=== PATIENT | male | born 1940 | race Caucasian/White ===

== ENCOUNTER 2025-04-30 14:00 | Outpatient (REF) | payer MEDICARE, SELFPAY ==
--- NOTE | ~2025-04-30 | FL_ITS ---
EXAMINATION: Modified Barium Swallow CLINICAL INFORMATION: Dysphagia COMPARISON: None TECHNIQUE: Modified barium swallow was performed under lateral fluoroscopy with patient in standing position. Barium mixed with solids and liquids of different consistencies was administered by the speech pathologist. Examination was recorded in the fluoroscopy suite. FINDINGS: Patient was given multiple consistencies. There was no laryngeal penetration or subglottic aspiration present. FLUOROSCOPY TIME: 1 minute 13 seconds Number of Spot Images: N/A DOSE AREA PRODUCT: 805.1 uGy-m2 (microgray-meter squared) FL/FL Modified Barium Swallow IMPRESSION: No laryngeal penetration or subglottic aspiration. Please refer to the full speech therapy report to follow for further detail. Electronically signed by: Alejo Galicia MD 04/30/2025 03:12 PM EDT
--- OUTSIDE RECORDS SUMMARY | 2025-04-30 15:15 | XMS_ITS | Encounter Summary ---
Author Organization [facility] Address [address] [place] [address] Phone Care Team Providers Care Paper And Prints Restorer Name Role Phone Scooter Gross MD Unavailable [phone] Dari Javier MD Primary Care Provider [email or web address] Bonita Sweeney MD Primary Care Provider [phone] Gema Mari RN Unavailable [phone] Bonita Sweeney A Primary Care Provider [phone] Gema Mari RN Unavailable [phone] Jennie Brown Unavailable [email or web address] Encounter Details Date Type Department Care Team (Late st Contact Info) Description 12/16/2021 Procedure Pass [facility], Ct Scan - [address] [address] Social History Tobacco Use Types Packs/Day Years Used Date Smoking Tobacco: Former Cigarettes 0.5 20 1 965 - 1985 Smokeless Tobacco: Never Alcohol Use Standard Drinks/Week Comments No 0 (1 standard drink = 0.6 oz pur e alcohol) Child or Family Care Answer Date Record ed Do you have problems with on e of the following making it difficult for you to work, study, or receive health care? No 12/19/2020 Education Answer Date Recorded Are you interested in help w ith more adult education (for example, completing high school, GED, job training, learning the Hong Konger language, technical skills, or developing parenting skills)? No 12/19/2020 Food Answer Date Recorded Within the past 6 months we worried whether our food would run out before we got money to buy more. Never True 12/19/2020 Within the past 6 months the food we bought just didn't last and we didn't have enough money to get more. Never True Paying for Meds Answer Date Recorded Do you have trouble paying for medicines? No 12/19/2020 Paying Utility Bills Answer Date Record ed Do you have trouble paying your heating or elect ricity bill? No 12/19/2020 Transportation Answer Date Recorded Has the lack of transportati on kept you from medical appointments or from getting medications? No 12/19/2020 Sex and Gender Information Value Date Recorded Sex Assigned at Male 10/23/2019 11:56 AM EST Legal Sex Male 10:11 PM EDT Gender Identity Male 10/23/2019 11:56 AM EST Sexual Orientation Straight 10/23/2019 11 :56 AM EST documented as of this encounter Plan of Treatment Upcoming Encounters Date Type Department Care Team (Late st Contact Info) Description 05/14/2025 1:40 PM EDT Office Visit [facility] [address] [place] [address] 3rd [facility], [address] [address] Wilton Deluca MD [address] [place] [address] 05/23/2025 4:00 PM EDT Office Visit [facility] Services [address] [place] [address] Naga Luis MD, MS [address] [address] Marlee Meraz, [facility]-AUTOMATION MECHANIC 8 [place] [address] 05/29/2025 1:30 PM EDT Office Visit [facility] [address] [place] [address] Naga Luis MD, MS [address] [address] 05/30/2025 4:00 PM EDT Office Visit [address] [place] [address] Naga Luis MD, MS [address] [address] [email or web address] Marlee Meraz CCC-AUTOMATION MECHANIC 8 [place] [address] 06/06/2025 4:00 PM EDT Office Visit [address] [place] [address] Naga Luis MD, MS [address] [place] [address] Marlee Meraz CCC-AUTOMATION MECHANIC 8 [place] [address] 06/13/2025 4:00 PM EDT Office Visit [facility] [address] [place] [address] Naga Luis MD, MS [address] [place] [address] Marlee Meraz CCC-AUTOMATION MECHANIC 8 [place] [address] 06/14/2025 10:00 AM EDT Office Visit [facility] Medical [address] [place] [address] Bonita Sweeney MD [address] [place] [address] 06/20/2025 2:00 PM EDT Office Visit [address] [address] Naga Luis MD, MS [address] [address] Marlee Meraz CCC-AUTOMATION MECHANIC [address] [place] [address] 06/27/2025 2:00 PM EDT Office Visit [address] [address] Naga Luis MD, MS [address] [address] Marlee Meraz CCC-AUTOMATION MECHANIC [address] [place] [address] 07/04/2025 2:00 PM EST Office Visit [address] [address] Naga Luis MD, MS [address] [address] Marlee Meraz CCC-AUTOMATION MECHANIC [address] [place] [address] 07/11/2025 2:00 PM EST Office Visit [address] [address] Naga Luis MD, MS [address] [address] Marlee Meraz CCC-AUTOMATION MECHANIC 8 [place] [address] 07/18/2025 2:00 PM EST Office Visit [address] [address] Naga Luis MD, MS [address] [address] Marlee Meraz CCC-AUTOMATION MECHANIC [address] [place] [address] 07/26/2025 1:00 PM EST Office Visit [address] [address] Naga Luis MD, MS [address] [address] Marlee Meraz CCC-AUTOMATION MECHANIC [address] [place] [address] 08/01/2025 2:00 PM EST Office Visit [address] [address] Naga Luis MD, MS [address] [address] Marlee Meraz CCC-AUTOMATION MECHANIC [address] [place] [address] 08/08/2025 2:00 PM EST Office Visit [address] [address] Naga Luis MD, MS [address] [address] Marlee Meraz, CCC-AUTOMATION MECHANIC 8 [place] [address] 08/15/2025 2:00 PM EST Office Visit [facility] Services 8 [place] [address] Naga Luis MD, MS [address] [address] Marlee Meraz CCC-AUTOMATION MECHANIC 8 [place] [address] documented as of this encounter Visit Diagnoses Not on filedocumented in this encounter Additional Health Concerns Infection Onset Date Last Indicated Resolved Time CoV-Risk 08/29/2022 08/29/2022 09/09/2022 1:24 AM EST CoV-Risk 10/12/2023 10/12/2023 10/12/2023 6:15 PM EST COVID-19 10/12/2023 10/12/2023 11/02/2023 1:21 AM EST Assessment Noted Time PHQ-2 Depression Total Score: 0 07/06/20 18 10:02 AM EST documented as of this encounter Care Teams Paper And Prints Restorer Relationship Specialty Start Date End Date Dari Javier MD [email or web address] PCP - General Family Medicine 08/12/20 04/04/22 Bonita Sweeney MD [address] [place] [address] [email or web address] PCP - General Internal Medicine 04/05/22 02/15/23 Bonita Sweeney MD [address] [place] [address] [email or web address] PCP - General Internal Medicine 02/16/23 Scooter Gross MD [address] [place] [address] [place] [phone] [email or web address] Historical LMR Provider 06/13/17 Gema Mari RN [address] [place] [address] [email or web address] iCMP Safety Consultant 09/10/22 10/07/22 eGma Mari RN [address] [place] [phone] [email or web address] iCMP Safety ConsultantDehydration Unit Operator 03/18/23 Jennie Brown [address] [place] [address] [email or web address] [facility] Community Window/Distribution Clerk 01/18/25 01/23/25 documented as of this encounter Additional Source Comments The information contained in this document represents components of the legal health record. It is not the complete legal health record.[facility]
--- OUTSIDE RECORDS SUMMARY | 2025-04-30 15:15 | XMS_ITS | Encounter Summary ---
Author Organization [facility] Address [address] [place] [address] Phone Care Team Providers Care Project Scheduler Name Role Phone Scooter Gross MD Unavailable [phone] Dari Javier MD Primary Care Provider [email or web address] Bonita Sweeney MD Primary Care Provider [phone] Gema Mari RN Unavailable [phone] Bonita Sweeney MD Primary Care Provider [phone] Gema Mari RN Unavailable [phone] Jennie Brown Unavailable yu Encounter Details Date Type Department Care Team (Late st Contact Info) Description 10/09/2021 Procedure Pass [facility] [place] [address] Social History Tobacco Use Types Packs/Day Years [...] high school, GED, job training, learning the Dominican language, technical skills, or developing parenting skills)? [...] Description 05/14/2025 1:40 PM EDT Office Visit [facility] [address] [place] [address] 3rd [facility], [address] [address] Wilton Deluca MD [address] [address] 05/23/2025 4:00 PM EDT Office Visit [facility] Rehabilitation Services 8 [place] [address] Naga Luis MD, MS [address] [address] Marlee Meraz, [facility]-PILE [facility]PERATOR 8 [place] [address] 05/29/2025 1:30 PM EDT Office Visit [facility] 10 [place] [address] Naga Luis MD, MS [address] [address] 05/30/2025 4:00 PM EDT Office Visit [facility] 8 [place] [address] Naga Luis MD, MS [address] [address] Marlee Meraz CCC-PILE OPERATOR 8 [place] [address] 06/06/2025 4:00 PM EDT Office Visit [address] [place] [address] Naga Luis MD, MS [address] [address] Marlee Meraz CCC-PILE OPERATOR 8 [place] [address] 06/13/2025 4:00 PM EDT Office Visit [facility] [address] [place] [address] Naga Luis MD, MS [address] [address] Marlee Meraz CCC-PILE OPERATOR 8 [place] [address] 06/14/2025 10:00 AM EDT Office Visit [facility] Medical [address] [place] [address] Bonita Sweeney MD [address] [place] [address] [email or web address] 06/20/2025 2:00 PM EDT Office Visit [address] [address] Naga Luis MD, MS [address] [address] Marlee Meraz CCC-PILE OPERATOR 8 [place] [address] 06/27/2025 2:00 PM EDT Office Visit [address] [address] Naga Luis MD, MS [address] [address] Marlee Meraz CCC-PILE OPERATOR 8 [place] [address] 07/04/2025 2:00 PM EST Office Visit [address] [address] Naga Luis MD, MS [address] [address] Marlee Meraz CCC-PILE OPERATOR 8 [place] [address] 07/11/2025 2:00 PM EST Office Visit [address] [place] [address] Naga Luis MD, MS [address] [address] Marlee Meraz CCC-PILE OPERATOR 8 [place] [address] 07/18/2025 2:00 PM EST Office Visit [facility] 8 [place] [address] Naga Lius MD, MS [address] [address] Marlee Meraz CCC-PILE OPERATOR 8 [place] [address] 07/26/2025 1:00 PM EST Office Visit [address] [address] Naga Luis MD, MS [address] [address] Marlee Meraz CCC-PILE OPERATOR 8 [place] [address] 08/01/2025 2:00 PM EST Office Visit [address] [address] Naga Luis MD, MS [address] [address] Marlee Meraz CCC-PILE OPERATOR 8 [place] [address] 08/08/2025 2:00 PM EST Office Visit [address] [address] Naga Luis MD, MS [address] [address] Marlee Meraz CCC-PILE OPERATOR 8 [place] [address] [email or web address] 08/15/2025 2:00 PM EST Office Visit [facility] 8 [place] [address] Naga Luis MD, MS [address] [address] Marlee Meraz CCC-PILE OPERATOR 8 [place] [address] [email or web address] documented as of this encounter Visit Diagnoses [...] documented as of this encounter Care Teams Project Scheduler Relationship Specialty Start Date End Date Dari Javier MD [email or web address] PCP - General Family Medicine 08/12/20 04/04/22 Bonita Sweeney MD [address] [place] [address] [email or web address] PCP - General Internal Medicine 04/05/22 02/15/23 Bonita Sweeney MD [address] [place] [address] [email or web address] PCP - General Internal Medicine 02/16/23 Scooter Gross MD [address] [place] [phone] [email or web address] Historical LMR Provider 06/13/17 Gema Mari RN [address] [place] [address] [email or web address] iCMP Money Examiner 09/10/22 10/07/22 Gema Mari RN [address] [place] [address] [email or web address] iC[employer] Money ExaminerRivet Passer 03/18/23 Jennie Brown [address] [place] [address] [email or web address] [facility] Community Granite Cutter 01/18/25 01/23/25 documented as of this encounter Additional Source Comments The information contained in this document represents components of the legal health record. It is not the complete legal health record.[facility]
--- OUTSIDE RECORDS SUMMARY | 2025-04-30 15:15 | XMS_ITS | Encounter Summary ---
Author Organization [facility] Address [address] [place] [address] Phone Care Team Providers Care Legal Research Analyst Name Role Phone Scooter Gross MD Unavailable [phone] Bonita Sweeney A Primary Care Provider [phone] Gema Mari RN Unavailable [phone] Bonita Sweeney A Primary Care Provider [phone] Gema Mari RN Unavailable [phone] Jennie Brown Unavailable yu Encounter Details Date Type Department Care Team (Late st Contact Info) Description 08/30/2022 Procedure Pass [facility], Ct Scan - [address] [address] Social History Tobacco Use Types Packs/Day Years [...] high school, GED, job training, learning the Anguillan language, technical skills, or developing parenting skills)? [...] Upcoming Encounters Date Type Department Care Team ([facility] st Contact Info) Description 05/14/2025 1:40 PM EDT Office Visit [facility] [address] [place] [address] 3rd [facility], [address] [address] Wilton Deluca MD [address] [place] [address] 05/23/2025 4:00 PM EDT Office Visit [facility] Rehabilitation Services [address] [place] [address] Naga Luis MD, MS [address] [address] Marlee Meraz, [facility]-SK[facility] MACHINE FEEDER 8 [place] [address] 05/29/2025 1:30 PM EDT Office Visit [facility] 10 [place] [address] Naga Luis MD, MS [address] [address] 05/30/2025 4:00 PM EDT Office Visit [facility] 8 [place] [address] Naga Luis MD, MS [address] [address] Marlee Meraz CCC-SKINNING MACHINE FEEDER 8 [place] [address] 06/06/2025 4:00 PM EDT Office Visit [address] [address] Naga Luis MD, MS [address] [address] Marlee Meraz CCC-SKINNING MACHINE FEEDER 8 [place] [address] 06/13/2025 4:00 PM EDT Office Visit [facility] 8 [place] [address] Naga Luis MD, MS [address] [address] Marlee Meraz CCC-SKINNING MACHINE FEEDER 8 [place] [address] 06/14/2025 10:00 AM EDT Office Visit [facility] [address] [place] [address] [place] [address] Bonita Sweeney MD [address] [place] [address] 06/20/2025 2:00 PM EDT Office Visit [address] [place] [address] Naga Luis MD, MS [address] [address] Marlee Meraz CCC-SKINNING MACHINE FEEDER [address] [place] [address] 06/27/2025 2:00 PM EDT Office Visit [address] [place] [address] Naga Luis MD, MS [address] [address] Marlee Meraz CCC-SKINNING MACHINE FEEDER [address] [place] [address] 07/04/2025 2:00 PM EST Office Visit [address] [place] [address] Naga Luis MD, MS [address] [address] Marlee Meraz CCC-SKINNING MACHINE FEEDER [address] [place] [address] 07/11/2025 2:00 PM EST Office Visit [address] [place] [address] Naga Luis MD, MS [address] [address] Marlee Meraz CCC-SKINNING MACHINE FEEDER 8 [place] [address] 07/18/2025 2:00 PM EST Office Visit [address] [place] [address] Naga Luis MD, MS [address] [address] Marlee Meraz CCC-SKINNING MACHINE FEEDER [address] [place] [address] 07/26/2025 1:00 PM EST Office Visit [address] [address] Naga Luis MD, MS [address] [address] Marlee Meraz CCC-SKINNING MACHINE FEEDER [address] [place] [address] 08/01/2025 2:00 PM EST Office Visit [address] [address] Naga Luis MD, MS [address] [address] Marlee Meraz CCC-SKINNING MACHINE FEEDER [address] [place] [address] 08/08/2025 2:00 PM EST Office Visit [address] [place] [address] Naga Luis MD, MS [address] [address] Marlee Meraz CCC-SKINNING MACHINE FEEDER 8 [place] [address] [email or web address] 08/15/2025 2:00 PM EST Office Visit [facility] 8 [place] [address] Naga Luis MD, MS [address] [address] [email or web address] Marlee Meraz, [facility]-SKINNING MACHINE FEEDER 8 [place] [address] [email or web address] documented as of this encounter Visit Diagnoses Not on filedocumented in this encounter Additional Health Concerns Infection Onset Date Last Indicated Resolved Time CoV-Risk 08/29/2022 08/29/2022 09/09/2022 1:24 AM EST CoV-Risk 10/12/2023 10/12/2023 10/12/2023 6:15 PM EST COVID-19 10/12/2023 10/12/2023 11/02/2023 1:21 AM EST Assessment Noted Time PHQ-2 Depression Total Score: 0 12/25/19 4:05 PM EDT documented as of this encounter Care Teams Legal Research Analyst Relationship Specialty Start Date End Date Bonita Sweeney MD [address] [place] [phone] [email or web address] PCP - General Internal Medicine 04/05/22 02/15/23 Bonita Sweeney MD [address] [place] [address] [email or web address] PCP - General Internal Medicine 02/16/23 Scooter Gross MD [address] [place] [phone] [email or web address] Historical LMR Provider 06/13/17 Gema Mari RN [address] [place] [phone] [email or web address] [facility] 09/10/22 10/07/22 Gema Mari RN [address] [place] [address] [facility] Car MechanicSporting Goods Salesperson 03/18/23 Jennie Brown [address] [place] [address] [email or web address] [facility] Community Sheriff'S Sergeant 01/18/25 01/23/25 documented as of this encounter Additional Source Comments The information contained in this document represents components of the legal health record. It is not the complete legal health record.[facility]
--- OUTSIDE RECORDS SUMMARY | 2025-04-30 15:15 | XMS_ITS | Encounter Summary ---
Author Organization [facility] Address [address] [facility] [address] [facility] [facility] [address] [place] [address] Phone Care Team Providers Care Train Operator Name Role Phone Scooter Gross MD Unavailable [phone] Bonita Sweeney MD Primary Care Provider [phone] Gema Mari RN Unavailable [phone] Jennie Brown Unavailable yu Encounter Details Date Type Department Care Team (Late st Contact Info) Description 05/14/2024 Procedure Pass OR Admitting Dept - Virtual Department [address] [place] [address] Social History Tobacco Use Types Packs/Day Years Used Date Smoking Tobacco: Former Cigarettes 0.5 25 1 960 - 1985 Smokeless Tobacco: Never Alcohol Use Standard Drinks/Week Comments Not Currently 0 (1 standard drink = 0.6 oz pur e alcohol) quit 1984 Child or Family Care Answer Date Record ed Do you have problems with on e of the following making it difficult for you to work, study, or receive health care? No 12/19/2020 Education Answer Date Recorded Are you interested in more education? Not on khushboo e 12/23/2022 Are you concerned about learning? Not on file 12/23/2022 No 12/23/2022 No 12/23/2022 Food Answer Date Recorded Within the past [...] appointments or from getting medications? No 12/19/2020 Digital Access Answer Date Recorded No 01/24/2023 No 01/24/2023 Reliable internet access at home? Not on file 01/24/2023 Device with a working camera? Not on file Sex and Gender Information Value Date Recorded Sex Assigned at Male 10/23/2019 11:56 AM EST Legal Sex Male 10:11 PM EDT Gender Identity Male 10/23/2019 11:56 AM EST Sexual Orientation Straight 10/23/2019 11 :56 AM EST documented as of this encounter Plan of Treatment Upcoming Encounters Date Type Department Care Team (Late st Contact Info) Description 05/14/2025 1:40 PM EDT Office Visit [facility] [address] [place] [address] 3rd [facility], [address] [place] [address] Wilton Deluca MD [address] [address] 05/23/2025 4:00 PM EDT Office Visit [facility] 8 [place] [address] Naga Luis MD, MS [address] [facility] 2nd [place] [address] Marlee Meraz, [facility] 8 [place] [address] 05/29/2025 1:30 PM EDT Office Visit [facility] Allergy [facility] Critical Care Medicine 10 [place] [address] Naga Luis MD, MS [address] [address] 05/30/2025 4:00 PM EDT Office Visit [facility] 8 [place] [address] Naga Luis MD, MS [address] [address] Marlee Meraz CCC-ESCORT BLIND 8 [place] [address] 06/06/2025 4:00 PM EDT Office Visit [address] [address] Naga Luis MD, MS [address] [address] Marlee Meraz CCC-ESCORT BLIND 8 [place] [address] 06/13/2025 4:00 PM EDT Office Visit [address] [address] Naga Luis MD, MS [address] [address] Marlee Meraz CCC-ESCORT BLIND 8 [place] [address] 06/14/2025 10:00 AM EDT Office Visit [address] [place] [address] Bonita Sweeney MD [address] [place] [address] [email or web address] 06/20/2025 2:00 PM EDT Office Visit [address] [place] [address] Naga Luis MD, MS [address] [address] Marlee Meraz CCC-ESCORT BLIND [address] [place] [address] 06/27/2025 2:00 PM EDT Office Visit [address] [address] Naga Luis MD, MS [address] [address] Marlee Meraz CCC-ESCORT BLIND [address] [place] [address] 07/04/2025 2:00 PM EST Office Visit [address] [address] Naga Luis MD, MS [address] [address] Marlee Meraz CCC-ESCORT BLIND [address] [place] [address] 07/11/2025 2:00 PM EST Office Visit [address] [place] [address] Naga Luis MD, MS [address] [address] Marlee Meraz CCC-ESCORT BLIND 8 [place] [address] 07/18/2025 2:00 PM EST Office Visit [address] [address] Naga Luis MD, MS [address] [address] Marlee Meraz CCC-ESCORT BLIND [address] [place] [address] 07/26/2025 1:00 PM EST Office Visit [address] [address] Naga Luis MD, MS [address] [address] Marlee Meraz CCC-ESCORT BLIND [address] [place] [address] 08/01/2025 2:00 PM EST Office Visit [address] [address] Naga Luis MD, MS [address] [address] Marlee Meraz CCC-ESCORT BLIND [address] [place] [address] 08/08/2025 2:00 PM EST Office Visit [address] [place] [address] Naga Luis MD, MS [address] [address] Marlee Meraz CCC-ESCORT BLIND 8 [place] [address] 08/15/2025 2:00 PM EST Office Visit [facility] 8 [place] [address] Naga Luis MD, MS [address] [address] Marlee Meraz, CCC-ESCORT BLIND 8 [place] [address] documented as of this encounter Visit Diagnoses Not on filedocumented in this encounter Additional Health Concerns Assessment Noted Time PHQ-2 Depression Total Score: 0 04/22/20 3:13 PM EDT documented as of this encounter Care Teams Train Operator Relationship Specialty Start Date End Date Bonita Sweeney MD [address] [place] [address] [email or web address] PCP - General Internal Medicine 02/16/23 Scooter Gross MD [address] [place] [address] [email or web address] Historical LMR Provider 06/13/17 Gema Mari, RN [address] [place] [phone] iCMP Kettle CoordinatorEnterprise Application Administrator 03/18/23 Jennie Brown [address] [place] [address] [email or web address] iCMP Community Cupola Repairer 01/18/25 01/23/25 documented as of this encounter Additional Source Comments The information contained in this document represents components of the legal health record. It is not the complete legal health record.[facility]
--- OUTSIDE RECORDS SUMMARY | 2025-04-30 15:15 | XMS_ITS | Encounter Summary ---
Author Organization [facility] Address [address] [facility] [address] [place] [address] Phone Care Team Providers Care Care Technician Name Role Phone Chaitanya Williamson MD Unavailable + Adi Tim MD Unavailable Antonio Travis MD Unavailable Scooter Gross MD Unavailable [phone] Theron Lee MD Unavailable [phone] Wayne Miles MD Unavailable Paul Lake MD Unavailable Flavio rTavis MD Unavailable Scooter Gross MD Primary Care Provider + Tri Cordova RNinternational marketing coordinator Provider Dari Javier MD Primary Care Provider [email or web address] Bonita Sweeney MD Primary Care Provider Gema Mari RN Unavailable [phone] Bonita Sweeney MD Primary Care Provider Gema Mari RN Unavailable [phone] Jennie Brown Unavailable yu Encounter Details Date Type Department Care Team (Late Contact Info) Description 05/15/2018 Procedure Pass [facility] Endoscopy Admitting Dept Virtual Department 30 [place] [address] Social History Tobacco Use Types Packs/Day Years Used Date Smoking Tobacco: Former Cigarettes Q uit: 1977 Smokeless Tobacco: Never Alcohol Use Standard Drinks/Week Comments No 0 (1 standard drink = 0.6 oz pur e alcohol) Sex and Gender Information Value Date Recorded Sex Assigned at Male 10/23/2019 11:56 AM EST Legal Sex Male 10:11 PM EDT Gender Identity Male 10/23/2019 11:56 AM EST Sexual Orientation Straight 10/23/2019 11 :56 AM EST documented as of this encounter Plan of Treatment Upcoming Encounters Date Type Department Care Team ([facility] Contact Info) Description 05/14/2025 1:40 PM EDT Office Visit [facility] [address] [place] [address] Wilton Deluca MD [address] [place] [address] 05/23/2025 4:00 PM EDT Office Visit [facility] 8 [place] [address] Naga Luis MD, MS [address] [address] Marlee Meraz, [facility]-INSPECTOR WATCH ASSEMBLY 8 [place] [address] 05/29/2025 1:30 PM EDT Office Visit [facility] Pulmonary, Allergy and Critical Care Medicine [address] [place] [address] Naga Luis MD, MS [address] [address] 05/30/2025 4:00 PM EDT Office Visit [facility] [address] [place] [address] Naga Luis MD, MS [address] [address] Marlee Meraz CCC-INSPECTOR WATCH ASSEMBLY 8 [place] [address] 06/06/2025 4:00 PM EDT Office Visit [facility] [address] [place] [address] Naga Luis MD, MS [address] [address] Marlee Meraz CCC-INSPECTOR WATCH ASSEMBLY 8 [place] [address] 06/13/2025 4:00 PM EDT Office Visit [address] [place] [address] Naga Luis MD, MS [address] [address] Marlee Meraz CCC-INSPECTOR WATCH ASSEMBLY 8 [place] [address] 06/14/2025 10:00 AM EDT Office Visit [facility] [address] [place] [address] [place] [address] Bonita Sweeney MD [address] [place] [address] 06/20/2025 2:00 PM EDT Office Visit [facility] [address] [place] [address] Naga Luis MD, MS [address] [address] [email or web address] Marlee Meraz CCC-INSPECTOR WATCH ASSEMBLY 8 [place] [address] 06/27/2025 2:00 PM EDT Office Visit [address] [place] [address] Naga Luis MD, MS [address] [address] [email or web address] Marlee Meraz CCC-INSPECTOR WATCH ASSEMBLY [address] [place] [address] 07/04/2025 2:00 PM EST Office Visit [address] [place] [address] Naga Luis MD, MS [address] [address] [email or web address] Marlee Meraz CCC-INSPECTOR WATCH ASSEMBLY [address] [place] [address] 07/11/2025 2:00 PM EST Office Visit [address] [place] [address] Naga Luis MD, MS [address] [address] Marlee Meraz CCC-INSPECTOR WATCH ASSEMBLY [address] [place] [address] 07/18/2025 2:00 PM EST Office Visit [address] [place] [address] Naga Luis MD, MS [address] [address] [email or web address] Marlee Meraz CCC-INSPECTOR WATCH ASSEMBLY 8 [place] [address] 07/26/2025 1:00 PM EST Office Visit [address] [place] [address] Naga Luis MD, MS [address] [address] [email or web address] Marlee Meraz CCC-INSPECTOR WATCH ASSEMBLY [address] [place] [address] 08/01/2025 2:00 PM EST Office Visit [address] [place] [address] Naga Luis MD, MS [address] [address] [email or web address] Marlee Meraz CCC-INSPECTOR WATCH ASSEMBLY [address] [place] [address] 08/08/2025 2:00 PM EST Office Visit [address] [place] [address] Naga Luis MD, MS [address] [address] [email or web address] Marlee Meraz CCC-INSPECTOR WATCH ASSEMBLY [address] [place] [address] 08/15/2025 2:00 PM EST Office Visit [address] [place] [address] Naga Luis MD, MS [address] [address] [email or web address] Marlee Meraz, CCC-INSPECTOR WATCH ASSEMBLY 8 [place] [address] [email or web address] documented as of this encounter Visit Diagnoses Not on filedocumented in this encounter Additional Health Concerns Infection Onset Date Last Indicated Resolved Time CoV-Risk 08/29/2022 08/29/2022 09/09/2022 1:24 AM EST CoV-Risk 10/12/2023 10/12/2023 10/12/2023 6:15 PM EST COVID-19 10/12/2023 10/12/2023 11/02/2023 1:2 1 AM EST documented as of this encounter Care Teams Care Technician Relationship Specialty Start Date End Date Scooter Gross MD [address] [place], [place] [address] [place] [phone] [email or web address] PCP - General 09/01/17 04/07/20 Tri Cordova RN [address] [place] [address] [email or web address] PCP - General Internal Medicine 04/08/20 08/11/20 Dari Javier MD [email or web address] PCP - General Family Medicine 08/12/20 04/04/22 Boniat Sweeney MD [address] [place] [address] [email or web address] PCP - General Internal Medicine 04/05/22 02/15/23 Bonita Sweeney MD [address] [place] [address] [email or web address] PCP - General Internal Medicine 02/16/23 Chaitanya Williamson MD [address] [place] [address] [email or web address] Historical LMR Provider 06/13/17 09/05/21 Adi Tim MD [address] [place] [address] Historical LMR Provider 06/13/17 Antonio Travis MD [address] [place] [phone] [email or web address] Historical LMR Provider 06/13/17 09/05/21 Scooter Gross MD [address] [place] [phone] [email or web address] Historical LMR Provider 06/13/17 Theron Lee MD [address] [place] [address] [email or web address] Historical LMR Provider 06/13/17 09/05/21 Wayne Miles MD [address] [place] [address] Historical LMR Provider 06/13/17 2 Paul Lake MD [address] [place] [address] [phone] Historical LMR Provider 06/13/17 2 Flavio Travis MD [address] [place] [address] [address] [place] [phone] [email or web address] Historical LMR Provider 06/13/17 09/05/21 Gema Mari RN [address] [place] [address] [email or web address] iCMP Export Documents Clerk 09/10/22 10/07/22 Gema Mari RN [address] [place] [address] iCMP Export Documents ClerkExploration Geologist 03/18/23 Jennie Brown [address] [place] [address] [email or web address] [facility] Nurse 01/18/25 01/23/25 documented as of this encounter Additional Source Comments The information contained in this document represents components of the legal health record. It is not the complete legal health record.[facility]
--- OUTSIDE RECORDS SUMMARY | 2025-04-30 15:15 | XMS_ITS | Encounter Summary ---
Author Organization [facility] Address [address] [facility] [facility] [address] [place] [address] Phone Care Team Providers Care Cia Agent Name Role Phone Scooter Gross MD Unavailable [phone] Bonita Sweeney MD Primary Care Provider [phone] Gema Mari RN Unavailable [phone] Jennie Brown Unavailable yu Encounter Details Date Type Department Care Team (Late st Contact Info) Description 08/09/2024 Procedure Pass [facility] Endoscopy Admitting Dept Virtual Department 30 [place], [place] [phone] Social History Tobacco Use Types Packs/Day Years Used Date Smoking Tobacco: Former Cigarettes 0.5 25 1 960 - 1984 Smokeless Tobacco: Never Alcohol Use Standard Drinks/Week [...] with a working camera? Not on file Intimate Partner Violence Answer Date R ecorded Are you denied basic needs s uch as food, clothing, or medical care? No 06/05/2024 In the past 12 months have y ou been in a relationship with a person who hurts, threatens, or tries to control you? No 06/05/2024 Are you denied basic needs s uch as food, clothing, or medical care? No 06/05/2024 In the past 12 months have y ou been in a relationship with a person who hurts, threatens, or tries to control you? No 06/05/2024 Sex and Gender Information Value Date Recorded Sex Assigned at Male 10/23/2019 11:56 AM EST Legal Sex Male 10:11 PM EDT Gender Identity Male 10/23/2019 11:56 AM EST Sexual Orientation Straight 10/23/2019 11 :56 AM EST documented as of this encounter Plan of Treatment Upcoming Encounters Date Type Department Care Team (Late st Contact Info) Description 05/14/2025 1:40 PM EDT Office Visit [facility] [address], [address] [place] [address] Wilton Deluca MD [address] [facility], [address] [place] [address] 05/23/2025 4:00 PM EDT Office Visit [facility] [address] [place] [address] Naga Luis MD, MS [address] [address] Marlee Meraz CCC-COST ACCOUNTING CLERK 8 [place] [address] 05/29/2025 1:30 PM EDT Office Visit [facility] All[facility] Critical [facility] Medicine 10 [place] [address] Naga Luis MD, MS [address] [address] 05/30/2025 4:00 PM EDT Office Visit [facility] [address] [place] [address] Naga Luis MD, MS [address] [address] Marlee Meraz CCC-COST ACCOUNTING CLERK 8 [place] [address] 06/06/2025 4:00 PM EDT Office Visit [facility] [address] [place] [address] Naga Luis MD, MS [address] [address] Marlee Meraz CCC-COST ACCOUNTING CLERK 8 [place] [address] 06/13/2025 4:00 PM EDT Office Visit [facility] [address] [place] [address] Naga Luis MD, MS [address] [address] Marlee Meraz CCC-COST ACCOUNTING CLERK 8 [place] [address] 06/14/2025 10:00 AM EDT Office Visit [facility] [address] [place] [address] Bonita Sweeney MD [address] [place] [address] 06/20/2025 2:00 PM EDT Office Visit [address] [address] Naga Luis MD, MS [address] [address] Marlee Meraz CCC-COST ACCOUNTING CLERK 8 [place] [address] 06/27/2025 2:00 PM EDT Office Visit [address] [address] Naga Luis MD, MS [address] [address] Marlee Meraz CCC-COST ACCOUNTING CLERK 8 [place] [address] 07/04/2025 2:00 PM EST Office Visit [address] [place] [address] Naga Luis MD, MS [address] [address] Marlee Meraz CCC-COST ACCOUNTING CLERK 8 [place] [address] 07/11/2025 2:00 PM EST Office Visit [facility] 8 [place] [address] Naga Luis MD, MS [address] [address] Marlee Meraz CCC-COST ACCOUNTING CLERK 8 [place] [address] 07/18/2025 2:00 PM EST Office Visit [address] [address] Naga Luis MD, MS [address] [address] Marlee Meraz CCC-COST ACCOUNTING CLERK 8 [place] [address] 07/26/2025 1:00 PM EST Office Visit [address] [address] Naga Luis MD, MS [address] [address] Marlee Meraz CCC-COST ACCOUNTING CLERK 8 [place] [address] 08/01/2025 2:00 PM EST Office Visit [address] [address] Naga Luis MD, MS [address] [address] Marlee Meraz CCC-COST ACCOUNTING CLERK 8 [place] [address] 08/08/2025 2:00 PM EST Office Visit [facility] 8 [place] [address] Naga Luis MD, MS [address] [address] Marlee Meraz CCC-COST ACCOUNTING CLERK 8 [place] [address] 08/15/2025 2:00 PM EST Office Visit [address] [address] Naga Luis MD, MS [address] [address] Marlee Meraz CCC-COST ACCOUNTING CLERK 8 [place] [address] documented as of this encounter Visit Diagnoses Not on filedocumented in this encounter Additional Health Concerns Assessment Noted Time PHQ-2 Depression Total Score: 0 06/05/20 24 4:05 PM EDT documented as of this encounter Care Teams Cia Agent Relationship Specialty Start Date End Date Bonita Sweeney MD [address] [place] [phone] [email or web address] PCP - General Internal Medicine 02/16/23 Scooter Gross MD [address] [place] [address] [email or web address] Historical LMR Provider 06/13/17 Gema Mari, RN [address] [place] [address] [phone] [email or web address] iCMP Donor Center TechnicianManager Respiratory 03/18/23 Jennie Brown [address] [place] [address] [email or web address] [facility] Community Robotype Operator 01/18/25 01/23/25 documented as of this encounter Additional Source Comments The information contained in this document represents components of the legal health record. It is not the complete legal health record.[facility]
--- OUTSIDE RECORDS SUMMARY | 2025-04-30 15:15 | XMS_ITS | Encounter Summary ---
Author Organization [facility] Address [address] [place] [address] Phone Care Team Providers Care Mine Wirer Name Role Phone Scooter Gross MD Unavailable Bonita Sweeney MD Primary Care Provider Gema Mari RN Unavailable Jennie Brown Unavailable yu Encounter Details Date Type Department Care Team (Latest Contact Info) Description 02/29/2024 Transcribe Orders Virtual Department 30 [place] [address] Sabine Gross, [facility]9 [place] [address] [email or web address] Other specified postprocedural states (Primary Dx) Social History Tobacco Use Types Packs/Day Years [...] Description 05/14/2025 1:40 PM EDT Office Visit [facility] [address] [place] [address] 3rd [facility], [address] [place] [address] Wilton Deluca MD [address] [place] [address] 05/23/2025 4:00 PM EDT Office Visit [facility] [address] [place] [address] Naga Luis MD, MS [address] [address] Marlee Meraz, [facility]-CEMENT BASED MATERIALS PUMP TENDER 8 [place] [address] 05/29/2025 1:30 PM EDT Office Visit [facility], Allergy and Critical Care Medicine [address] [place] [address] Naga Luis MD, MS [address] [address] 05/30/2025 4:00 PM EDT Office Visit [facility] 8 [place] [address] Naga Luis MD, MS [address] [address] Marlee Meraz CCC-CEMENT BASED MATERIALS PUMP TENDER 8 [place] [address] 06/06/2025 4:00 PM EDT Office Visit [facility] 8 [place] [address] Naga Luis MD, MS [address] [address] Marlee Meraz CCC-CEMENT BASED MATERIALS PUMP TENDER 8 [place] [address] 06/13/2025 4:00 PM EDT Office Visit [facility] 8 [place] [address] Naga Luis MD, MS [address] [address] Marlee Meraz CCC-CEMENT BASED MATERIALS PUMP TENDER 8 [place] [address] 06/14/2025 10:00 AM EDT Office Visit [facility] [address] [place] [address] Bonita Sweeney MD [address] [place] [address] 06/20/2025 2:00 PM EDT Office Visit [address] [place] [address] Naga Luis MD, MS [address] [address] Marlee Meraz CCC-CEMENT BASED MATERIALS PUMP TENDER [address] [place] [address] 06/27/2025 2:00 PM EDT Office Visit [address] [place] [address] Naga Luis MD, MS [address] [address] Marlee Meraz CCC-CEMENT BASED MATERIALS PUMP TENDER [address] [place] [address] 07/04/2025 2:00 PM EST Office Visit [address] [place] [address] Naga Luis MD, MS [address] [address] Marlee Meraz CCC-CEMENT BASED MATERIALS PUMP TENDER [address] [place] [address] 07/11/2025 2:00 PM EST Office Visit [address] [place] [address] Naga Luis MD, MS [address] [address] [email or web address] Marlee Meraz CCC-CEMENT BASED MATERIALS PUMP TENDER 8 [place] [address] 07/18/2025 2:00 PM EST Office Visit [address] [place] [address] Naga Luis MD, MS [address] [address] [email or web address] Marlee Meraz CCC-CEMENT BASED MATERIALS PUMP TENDER [address] [place] [address] 07/26/2025 1:00 PM EST Office Visit [address] [place] [address] Naga Luis MD, MS [address] [address] [email or web address] Marlee Meraz CCC-CEMENT BASED MATERIALS PUMP TENDER [address] [place] [address] 08/01/2025 2:00 PM EST Office Visit [address] [place] [address] Naga Luis MD, MS [address] [address] [email or web address] Marlee Meraz CCC-CEMENT BASED MATERIALS PUMP TENDER [address] [place] [address] 08/08/2025 2:00 PM EST Office Visit [address] [place] [address] Naga Luis MD, MS [address] [address] [email or web address] Marlee Meraz, [facility]-CEMENT BASED MATERIALS PUMP TENDER 8 [place] [address] [email or web address] 08/15/2025 2:00 PM EST Office Visit [facility] [address] [place] [address] Naga Luis MD, MS [address] [address] [email or web address] Marlee Meraz [facility]-CEMENT BASED MATERIALS PUMP TENDER [address] [place] [address] [email or web address] documented as of this encounter Visit Diagnoses Diagnosis Other specified postprocedural states- Primary documented in this encounter Additional Health Concerns Assessment Noted Time PHQ-2 Depression Total Score: 0 04/22/20 3:13 PM EDT documented as of this encounter Care Teams Mine Wirer Relationship Specialty Start Date End Date Bonita Sweeney MD [address] [place] [address] [email or web address] PCP - General Internal Medicine 02/16/23 Scooter Gross MD [address] [place] [address] [email or web address] Historical LMR Provider 06/13/17 Gema Mari, RN [address] [place] [address] [phone] [email or web address] iCMP CokemanBarrel Washer 03/18/23 Jennie Brown [address] [place] [address] [email or web address] [facility] Community Knowledge Architect 01/18/25 01/23/25 documented as of this encounter Additional Source Comments The information contained in this document represents components of the legal health record. It is not the complete legal health record.[facility]
--- OUTSIDE RECORDS SUMMARY | 2025-04-30 15:15 | XMS_ITS | Encounter Summary ---
Author Organization [facility] Address [address] [place] [address] Phone Care Team Providers Care Yarn Comber Name Role Phone Scooter Gross MD Unavailable [phone] Bonita Sweeney A Primary Care Provider [phone] Bonita Sweeney A Primary Care Provider [phone] Gema Mari RN Unavailable [phone] Jennie Brown Unavailable yu Encounter Details Date Type Department Care Team (Late st Contact Info) Description 10/12/2022 Procedure Pass [facility], Ct Scan - [address] [id number] Social History Tobacco Use Types Packs/Day Years [...] high school, GED, job training, learning the Trinidadian language, technical skills, or developing parenting skills)? [...] Upcoming Encounters Date Type Department Care Team ([facility] st Contact Info) Description 05/14/2025 1:40 PM EDT Office Visit [facility] [address] [place] [address], [address] [address] Wilton Deluca MD [address] [place] [address] 05/23/2025 4:00 PM EDT Office Visit [facility] Services 8 [place] [address] Naga Luis MD, MS [address] [address] Marlee Meraz, [facility]-DECISION ANALYST 8 [place] [address] 05/29/2025 1:30 PM EDT Office Visit [facility], Allergy and Critical Care Medicine 10 [place] [address] Naga Luis MD, MS [address] [address] 05/30/2025 4:00 PM EDT Office Visit [facility] 8 [place] [address] Naga Luis MD, MS [address] [address] Marlee Meraz CCC-DECISION ANALYST 8 [place] [address] 06/06/2025 4:00 PM EDT Office Visit [address] [address] Naga Luis MD, MS [address] [address] Marlee Meraz CCC-DECISION ANALYST 8 [place] [address] 06/13/2025 4:00 PM EDT Office Visit [address] [address] Naga Luis MD, MS [address] [address] Marlee Meraz CCC-DECISION ANALYST [address] [place] [address] 06/14/2025 10:00 AM EDT Office Visit [facility] [address] [place] [address] [place] [address] Bonita Sweeney MD [address] [place] [address] 06/20/2025 2:00 PM EDT Office Visit [address] [place] [address] Naga Luis MD, MS [address] [address] Marlee Meraz CCC-DECISION ANALYST 8 [place] [address] 06/27/2025 2:00 PM EDT Office Visit [address] [address] Naga Luis MD, MS [address] [address] Marlee Meraz CCC-DECISION ANALYST [address] [place] [address] 07/04/2025 2:00 PM EST Office Visit [address] [place] [address] Naga Luis MD, MS [address] [address] Marlee Meraz CCC-DECISION ANALYST 8 [place] [address] 07/11/2025 2:00 PM EST Office Visit [address] [address] Naga Luis MD, MS [address] [address] Marlee Meraz CCC-DECISION ANALYST 8 [place] [address] 07/18/2025 2:00 PM EST Office Visit [address] [place] [address] Naga Luis MD, MS [address] [address] Marlee Meraz CCC-DECISION ANALYST 8 [place] [address] 07/26/2025 1:00 PM EST Office Visit [address] [address] Naga Luis MD, MS [address] [address] Marlee Meraz CCC-DECISION ANALYST [address] [place] [address] 08/01/2025 2:00 PM EST Office Visit [address] [address] Naga Luis MD, MS [address] [address] Marlee Meraz CCC-DECISION ANALYST 8 [place] [address] 08/08/2025 2:00 PM EST Office Visit [address] [address] Naga Luis MD, MS [address] [address] Marlee Meraz CCC-DECISION ANALYST 8 [place] [address] 08/15/2025 2:00 PM EST Office Visit [facility] 8 [place] [address] Naga Luis MD, MS [address] [phone] [email or web address] Marlee Meraz, [facility]-DECISION ANALYST 8 [place] [address] [email or web address] documented as of this encounter Visit Diagnoses Not on filedocumented in this encounter Additional Health Concerns Infection Onset Date Last Indicated Resolved Time CoV-Risk 10/12/2023 10/12/2023 10/12/2023 6:15 PM EST COVID-19 10/12/2023 10/12/2023 11/02/2023 1:21 AM EST Assessment Noted Time PHQ-2 Depression Total Score: 0 12/25/19 4:05 PM EDT documented as of this encounter Care Teams Yarn Comber Relationship Specialty Start Date End Date Bonita Sweeney MD [address] [place] [address] [email or web address] PCP - General Internal Medicine 04/05/22 02/15/23 Bonita Sweeney MD [address] [place] [address] [email or web address] PCP - General Internal Medicine 02/16/23 Scooter Gross MD [address] [place] [address] [email or web address] Historical LMR Provider 06/13/17 Gema Mari, RN 10 [place], [place] [phone] [email or web address] iCMP User Support Analyst SupervisorConductor Yard 03/18/23 Jennie Brown [address] [place] [address] [email or web address] Community Mailroom Courier 01/18/25 01/23/25 documented as of this encounter Additional Source Comments The information contained in this document represents components of the legal health record. It is not the complete legal health record.[facility]
--- OUTSIDE RECORDS SUMMARY | 2025-04-30 15:15 | XMS_ITS | Encounter Summary ---
Author Organization [facility] Address [address] [place] [address] Phone Care Team Providers Care E Commerce Web Developer Name Role Phone Scooter Gross MD Unavailable [phone] Bonita Sweeney A Primary Care Provider Gema Mari RN Unavailable [phone] Bonita Sweeney A Primary Care Provider [phone] Gema Mari RN Unavailable [phone] Jennie Brown Unavailable yu Encounter Details Date Type Department Care Team (Late st Contact Info) Description 08/30/2022 Procedure Pass [facility], Ct Scan - [address] [address] Social History Tobacco Use Types Packs/Day Years [...] high school, GED, job training, learning the Gabonese language, technical skills, or developing parenting skills)? [...] Upcoming Encounters Date Type Department Care Team ([facility] st Contact Info) Description 05/14/2025 1:40 PM EDT Office Visit [facility] [address] [place] [address] 3rd [facility], [address] [address] Wilton Deluca MD [address] [place] [address] 05/23/2025 4:00 PM EDT Office Visit [facility] Rehabilitation Services [address] [place] [address] Naga Luis MD, MS [address] [address] Marlee Meraz, [facility] 8 [place] [address] 05/29/2025 1:30 PM EDT Office Visit [facility] Allergy [facility] Critical Care Medicine 10 [place] [address] Naga Luis MD, MS [address] [address] 05/30/2025 4:00 PM EDT Office Visit [facility] 8 [place] [address] Naga Luis MD, MS [address] [address] Marlee Meraz CCC-DATABASE ADMIN 8 [place] [address] 06/06/2025 4:00 PM EDT Office Visit [address] [address] Naga Luis MD, MS [address] [address] Marlee Meraz CCC-DATABASE ADMIN 8 [place] [address] 06/13/2025 4:00 PM EDT Office Visit [facility] 8 [place] [address] Naga Luis MD, MS [address] [address] Marlee Meraz CCC-DATABASE ADMIN 8 [place] [address] 06/14/2025 10:00 AM EDT Office Visit [facility] [address] [place] [address] [place] [address] Bonita Sweeney MD [address] [place] [address] 06/20/2025 2:00 PM EDT Office Visit [address] [place] [address] Naga Luis MD, MS [address] [address] Marlee Meraz [employer]-DATABASE ADMIN [address] [place] [address] 06/27/2025 2:00 PM EDT Office Visit [address] [place] [address] Naga Luis MD, MS [address] [address] Marlee Meraz CCC-DATABASE ADMIN [address] [place] [address] 07/04/2025 2:00 PM EST Office Visit [address] [place] [address] Naga Luis MD, MS [address] [address] Marlee Meraz CCC-DATABASE ADMIN [address] [place] [address] 07/11/2025 2:00 PM EST Office Visit [address] [place] [address] Naga Luis MD, MS [address] [address] Marlee Meraz CCC-DATABASE ADMIN 8 [place] [address] 07/18/2025 2:00 PM EST Office Visit [address] [place] [address] Naga Luis MD, MS [address] [address] Marlee Meraz CCC-DATABASE ADMIN [address] [place] [address] 07/26/2025 1:00 PM EST Office Visit [address] [address] Naga Luis MD, MS [address] [address] Marlee Meraz CCC-DATABASE ADMIN [address] [place] [address] 08/01/2025 2:00 PM EST Office Visit [address] [address] Naga Luis MD, MS [address] [address] Marlee Meraz CCC-DATABASE ADMIN [address] [place] [address] 08/08/2025 2:00 PM EST Office Visit [address] [place] [address] Naga Luis MD, MS [address] [address] Marlee Meraz CCC-DATABASE ADMIN 8 [place] [address] [email or web address] 08/15/2025 2:00 PM EST Office Visit [facility] Services 8 [place] [address] Naga Luis MD, MS [address] [address] [email or web address] Marlee Meraz, [facility] 8 [place] [address] [email or web address] documented as of this encounter Visit Diagnoses Not on filedocumented in this encounter Additional Health Concerns Infection Onset Date Last Indicated Resolved Time CoV-Risk 08/29/2022 08/29/2022 09/09/2022 1:24 AM EST CoV-Risk 10/12/2023 10/12/2023 10/12/2023 6:15 PM EST COVID-19 10/12/2023 10/12/2023 11/02/2023 1:21 AM EST Assessment Noted Time PHQ-2 Depression Total Score: 0 12/25/19 4:05 PM EDT documented as of this encounter Care Teams E Commerce Web Developer Relationship Specialty Start Date End Date Bonita Sweeney MD [address] [place] [address] [email or web address] PCP - General Internal Medicine 04/05/22 02/15/23 Bonita Sweeney MD [address] [place] [address] [email or web address] PCP - General Internal Medicine 02/16/23 Scooter Gross MD [address] [place] [address] [email or web address] Historical LMR Provider 06/13/17 Gema Mari RN [address] [place] [address] [email or web address] [facility] Music Artist 09/10/22 10/07/22 Gema Mari RN [address] [place] [address] [facility] Music ArtistGlove Machine Operator 03/18/23 Jennie Brown [address] [place] [address] [email or web address] [facility] Community Heater Tender 01/18/25 01/23/25 documented as of this encounter Additional Source Comments The information contained in this document represents components of the legal health record. It is not the complete legal health record.[facility]
--- OUTSIDE RECORDS SUMMARY | 2025-04-30 15:15 | XMS_ITS | Encounter Summary ---
Author Organization [facility] Address [address] [facility] [address] [place] [address] Phone Care Team Providers Care Attendance Clerk Name Role Phone Scooter Gross MD Unavailable [phone] Bonita Sweeney MD Primary Care Provider [phone] Gema Mari RN Unavailable [phone] Jennie Brown Unavailable yu Encounter Details Date Type Department Care Team (Late st Contact Info) Description 02/23/2024 Procedure Pass [facility], Ct Scan - [address] [address] Social History Tobacco Use Types Packs/Day Years [...] Description 05/14/2025 1:40 PM EDT Office Visit [facility] [address] [place] [address] 3rd [facility], [address] [address] Wilton Deluca MD [address] [address] 05/23/2025 4:00 PM EDT Office Visit [facility] Services 8 [place] [address] Naga Luis MD, MS 10 [facility] 2nd [place] [address] Marlee Meraz, [facility]-MORTGAGE PROCESSOR 8 [place] [address] 05/29/2025 1:30 PM EDT Office Visit [facility], Allergy and Critical Care Medicine 10 [place] [address] Naga Luis MD, MS [address] [address] 05/30/2025 4:00 PM EDT Office Visit [facility] 8 [place] [address] Naga Luis MD, MS [address] [address] Marlee Meraz CCC-MORTGAGE PROCESSOR 8 [place] [address] 06/06/2025 4:00 PM EDT Office Visit [address] [place] [address] Naga Luis MD, MS [address] [address] Marlee Meraz CCC-MORTGAGE PROCESSOR 8 [place] [address] 06/13/2025 4:00 PM EDT Office Visit [facility] [address] [place] [address] Naga Luis MD, MS [address] [address] Marlee Meraz CCC-MORTGAGE PROCESSOR 8 [place] [address] 06/14/2025 10:00 AM EDT Office Visit [facility] Medical [address] [place] [address] Bonita Sweeney MD [address] [place] [address] [email or web address] 06/20/2025 2:00 PM EDT Office Visit [address] [address] Naga Luis MD, MS [address] [address] Marlee Meraz CCC-MORTGAGE PROCESSOR 8 [place] [address] 06/27/2025 2:00 PM EDT Office Visit [address] [address] Naga Luis MD, MS [address] [address] Marlee Meraz CCC-MORTGAGE PROCESSOR 8 [place] [address] 07/04/2025 2:00 PM EST Office Visit [address] [address] Naga Luis MD, MS [address] [address] Marlee Meraz CCC-MORTGAGE PROCESSOR 8 [place] [address] 07/11/2025 2:00 PM EST Office Visit [address] [place] [address] Naga Luis MD, MS [address] [address] Marlee Meraz CCC-MORTGAGE PROCESSOR 8 [place] [address] 07/18/2025 2:00 PM EST Office Visit [facility] 8 [place] [address] Naga Luis MD, MS [address] [address] Marlee Meraz CCC-MORTGAGE PROCESSOR 8 [place] [address] 07/26/2025 1:00 PM EST Office Visit [address] [address] Naga Luis MD, MS [address] [address] Marlee Meraz CCC-MORTGAGE PROCESSOR 8 [place] [address] 08/01/2025 2:00 PM EST Office Visit [address] [address] Naga Luis MD, MS [address] [address] Marlee Meraz CCC-MORTGAGE PROCESSOR 8 [place] [address] 08/08/2025 2:00 PM EST Office Visit [address] [address] Naga Luis MD, MS [address] [address] Marlee Meraz CCC-MORTGAGE PROCESSOR 8 [place] [address] 08/15/2025 2:00 PM EST Office Visit [facility] 8 [place] [address] Naga Luis MD, MS [address] [address] Marlee Meraz, CCC-MORTGAGE PROCESSOR 8 [place] [address] documented as of this encounter Visit Diagnoses Not on filedocumented in this encounter Additional Health Concerns Assessment Noted Time PHQ-2 Depression Total Score: 0 04/22/20 3:13 PM EDT documented as of this encounter Care Teams Attendance Clerk Relationship Specialty Start Date End Date Bonita Sweeney MD [address] [place] [address] PCP - General Internal Medicine 02/16/23 Scooter Gross MD [address] [place] [phone] [email or web address] Historical LMR Provider 06/13/17 Gema Mari, RN [address] [place] [address] iCMP Student NurseResidential Caregiver 03/18/23 Jennie Brown [address] [place] [phone] [email or web address] iCMP Community Fiscal Analyst 01/18/25 01/23/25 documented as of this encounter Additional Source Comments The information contained in this document represents components of the legal health record. It is not the complete legal health record.[facility]
--- OUTSIDE RECORDS SUMMARY | 2025-04-30 15:15 | XMS_ITS | Encounter Summary ---
Author Organization [facility] Address [address] [place] [address] Phone Care Team Providers Care Heavy Threader Name Role Phone Scooter Gross MD Unavailable [phone] Dari Javier MD Primary Care Provider [email or web address] Bonita Sweeney MD Primary Care Provider [phone] Gema Mari RN Unavailable [phone] Bonita Sweeney A Primary Care Provider [phone] Gema Mari RN Unavailable [phone] Jennie Brown Unavailable yu Encounter Details Date Type Department Care Team (Late st Contact Info) Description 03/09/2022 Procedure Pass [facility] Endoscopy Admitting Dept Virtual Department [address] [place] [address] Social History Tobacco Use Types Packs/Day Years [...] high school, GED, job training, learning the Senegalese language, technical skills, or developing parenting skills)? [...] Description 05/14/2025 1:40 PM EDT Office Visit [facility] [address] [place] [address] 3rd [facility], [address] [address] Wilton Deluca MD [address] [place] [address] 05/23/2025 4:00 PM EDT Office Visit [facility] 8 [place] [address] Naga Luis MD, MS [address] [address] Marlee Meraz, [facility]-TOPOGRAPHICAL SURVEYOR 8 [place] [address] 05/29/2025 1:30 PM EDT Office Visit [facility] Pulmonary, Allergy and Critical Care Medicine 10 [facility] [place] [address] Naga Luis MD, MS [address] [address] 05/30/2025 4:00 PM EDT Office Visit [facility] [address] [place] [address] Naga Luis MD, MS [address] [address] Marlee Meraz CCC-TOPOGRAPHICAL SURVEYOR 8 [place] [address] 06/06/2025 4:00 PM EDT Office Visit [facility] [address] [place] [address] Naga Luis MD, MS [address] [address] Marlee Meraz CCC-TOPOGRAPHICAL SURVEYOR 8 [place] [address] 06/13/2025 4:00 PM EDT Office Visit [facility] [address] [place] [address] Naga Luis MD, MS [address] [place] [address] Marlee Meraz CCC-TOPOGRAPHICAL SURVEYOR 8 [place] [address] 06/14/2025 10:00 AM EDT Office Visit [facility] [address] [place] [address] Bonita Sweeney MD [address] [place] [address] [email or web address] 06/20/2025 2:00 PM EDT Office Visit [address] [address] Naga Luis MD, MS [address] [address] Marlee Meraz CCC-TOPOGRAPHICAL SURVEYOR [address] [place] [address] 06/27/2025 2:00 PM EDT Office Visit [address] [address] Naga Luis MD, MS [address] [address] Marlee Meraz CCC-TOPOGRAPHICAL SURVEYOR [address] [place] [address] 07/04/2025 2:00 PM EST Office Visit [address] [address] Naga Luis MD, MS [address] [address] Marlee Meraz CCC-TOPOGRAPHICAL SURVEYOR [address] [place] [address] 07/11/2025 2:00 PM EST Office Visit [address] [address] Naga Luis MD, MS [address] [address] Marlee Meraz CCC-TOPOGRAPHICAL SURVEYOR 8 [place] [address] 07/18/2025 2:00 PM EST Office Visit [facility] 8 [place] [address] Naga Luis MD, MS [address] [address] Marlee Meraz CCC-TOPOGRAPHICAL SURVEYOR [address] [place] [address] 07/26/2025 1:00 PM EST Office Visit [address] [address] Naga Luis MD, MS [address] [address] Marlee Meraz CCC-TOPOGRAPHICAL SURVEYOR [address] [place] [address] 08/01/2025 2:00 PM EST Office Visit [address] [address] Naga Luis MD, MS [address] [address] Marlee Meraz CCC-TOPOGRAPHICAL SURVEYOR [address] [place] [address] 08/08/2025 2:00 PM EST Office Visit [address] [address] Naga Luis MD, MS [address] [address] Marlee Meraz CCC-TOPOGRAPHICAL SURVEYOR 8 [place] [address] 08/15/2025 2:00 PM EST Office Visit [facility] 8 [place] [address] Naga Luis MD, MS [address] [address] Marlee Meraz CCC-TOPOGRAPHICAL SURVEYOR 8 [place] [address] documented as of this encounter Visit Diagnoses Not on filedocumented in this encounter Additional Health Concerns Infection Onset Date Last Indicated Resolved Time CoV-Risk 08/29/2022 08/29/2022 09/09/2022 1:24 AM EST CoV-Risk 10/12/2023 10/12/2023 10/12/2023 6:15 PM EST COVID-19 10/12/2023 10/12/2023 11/02/2023 1:21 AM EST Assessment Noted Time PHQ-2 Depression Total Score: 0 12/25/19 22 4:05 PM EDT documented as of this encounter Care Teams Heavy Threader Relationship Specialty Start Date End Date Dari Javier MD [email or web address] PCP - General Family Medicine 08/12/20 04/04/22 Bonita Sweeney MD [address] [place] [address] [email or web address] PCP - General Internal Medicine 04/05/22 02/15/23 Bonita Sweeney MD [address] [place] [address] [email or web address] PCP - General Internal Medicine 02/16/23 Scooter Gross MD [address] [place], [place] [address]robert AVA RUDD [id number] [email or web address] Historical LMR Provider 06/13/17 Gema Mari RN [address] [place] [phone] [email or web address] iC[employer] Meter Repair Shop Supervisor 09/10/22 10/07/22 Gema Mari RN [address] [place] [address] [email or web address] iC[employer] Meter Repair Shop SupervisorProduct Lister 03/18/23 Jennie Brown [address] [place] [address] [email or web address] [facility] Community Cuprous Chloride Operator 01/18/25 01/23/25 documented as of this encounter Additional Source Comments The information contained in this document represents components of the legal health record. It is not the complete legal health record.[facility]
--- OUTSIDE RECORDS SUMMARY | 2025-04-30 15:15 | XMS_ITS | Encounter Summary ---
Author Organization [facility] Address [address] [place] [address] Phone Care Team Providers Care Speech Therapist Name Role Phone Scooter Gross MD Unavailable [phone] Dari Javier MD Primary Care Provider [email or web address] Bonita Sweeney MD Primary Care Provider [phone] Gema Mari RN Unavailable [phone] Bonita Sweeney A Primary Care Provider [phone] Gema Mari RN Unavailable [phone] Jennie Brown Unavailable [email or web address] Encounter Details Date Type Department Care Team (Late st Contact Info) Description 10/27/2021 Procedure Pass [place] Admitting Dept - Virtual Department [address] [place] [address] Social History Tobacco Use Types Packs/Day Years [...] high school, GED, job training, learning the American language, technical skills, or developing parenting skills)? [...] Description 05/14/2025 1:40 PM EDT Office Visit [facility] [address] [place] [address] 3rd [facility], [address] [address] Wilton Deluca MD [address] [place] [address] 05/23/2025 4:00 PM EDT Office Visit [facility] 8 [place] [address] Naga Luis MD, MS [address] [address] Marlee Meraz, [facility]-EDGE TRIMMING MACHINE OPERATOR 8 [place] [address] 05/29/2025 1:30 PM EDT Office Visit [facility] Pulmonary, Allergy and Critical Care Medicine 10 [facility][1] [place] [address] Naga Luis MD, MS [address] [address] 05/30/2025 4:00 PM EDT Office Visit [facility] [address] [place] [address] Naga Luis MD, MS [address] [address] Marlee Meraz CCC-EDGE TRIMMING MACHINE OPERATOR 8 [place] [address] 06/06/2025 4:00 PM EDT Office Visit [facility] [address] [place] [address] Naga Luis MD, MS [address] [address] Marlee Meraz CCC-EDGE TRIMMING MACHINE OPERATOR 8 [place] [address] 06/13/2025 4:00 PM EDT Office Visit [facility] [address] [place] [address] Naga Luis MD, MS [address] [place] [address] Marlee Meraz CCC-EDGE TRIMMING MACHINE OPERATOR 8 [place] [address] 06/14/2025 10:00 AM EDT Office Visit [facility] [address] [place] [address] Bonita Sweeney MD [address] [place] [address] [email or web address] 06/20/2025 2:00 PM EDT Office Visit [address] [address] Naga Luis MD, MS [address] [address] Marlee Meraz CCC-EDGE TRIMMING MACHINE OPERATOR [address] [place] [address] 06/27/2025 2:00 PM EDT Office Visit [address] [address] Naga Luis MD, MS [address] [address] Marlee Meraz CCC-EDGE TRIMMING MACHINE OPERATOR [address] [place] [address] 07/04/2025 2:00 PM EST Office Visit [address] [address] Naga Luis MD, MS [address] [address] Marlee Meraz CCC-EDGE TRIMMING MACHINE OPERATOR [address] [place] [address] 07/11/2025 2:00 PM EST Office Visit [address] [address] Naga Luis MD, MS [address] [address] Marlee Meraz CCC-EDGE TRIMMING MACHINE OPERATOR 8 [place] [address] 07/18/2025 2:00 PM EST Office Visit [facility] 8 [place] [address] Naga Luis MD, MS [address] [address] Marlee Meraz CCC-EDGE TRIMMING MACHINE OPERATOR [address] [place] [address] 07/26/2025 1:00 PM EST Office Visit [address] [address] Naga Luis MD, MS [address] [address] Marlee Meraz CCC-EDGE TRIMMING MACHINE OPERATOR [address] [place] [address] 08/01/2025 2:00 PM EST Office Visit [address] [address] Naga Luis MD, MS [address] [address] Marlee Meraz CCC-EDGE TRIMMING MACHINE OPERATOR [address] [place] [address] 08/08/2025 2:00 PM EST Office Visit [address] [address] Naga Luis MD, MS [address] [address] Marlee Meraz CCC-EDGE TRIMMING MACHINE OPERATOR 8 [place] [address] 08/15/2025 2:00 PM EST Office Visit [facility] 8 [place] [address] Naga Luis MD, MS [address] [address] Marlee Meraz CCC-EDGE TRIMMING MACHINE OPERATOR 8 [place] [address] documented as of this encounter Visit Diagnoses [...] documented as of this encounter Care Teams Speech Therapist Relationship Specialty Start Date End Date Dari Javier MD [email or web address] PCP - General Family Medicine 08/12/20 04/04/22 Bonita Sweeney MD [address] [place] [address] [email or web address] PCP - General Internal Medicine 04/05/22 02/15/23 Bonita Sweeney MD [address] [place] [address] [email or web address] PCP - General Internal Medicine 02/16/23 Scooter Gross MD [address] [place] [address] AVA RUDD [address] [email or web address] Historical LMR Provider 06/13/17 Gema Mari RN [address] [place] [address] [email or web address] iCMP Down Filler 09/10/22 10/07/22 Gema Mari RN [address] [place] [address] [email or web address] iCMP Down FillerGeneral Medical Practitioner 03/18/23 Jennie Brown [address] [place] [address] [email or web address] [facility] Community Manager Bar 01/18/25 01/23/25 documented as of this encounter Additional Source Comments The information contained in this document represents components of the legal health record. It is not the complete legal health record.[facility]
--- OUTSIDE RECORDS SUMMARY | 2025-04-30 15:15 | XMS_ITS | Encounter Summary ---
Author Organization [facility] Address [address] [place] [address] Phone Care Team Providers Care Electrical Sign Servicer Name Role Phone Scooter Gross MD Unavailable Bonita Sweeney MD Primary Care Provider Gema Mari RN Unavailable [phone] Jennie Brown Unavailable yu Encounter Details Date Type Department Care Team (Late st Contact Info) Description 02/28/2023 Transcribe Orders [facility] [address] [place] [address] Bonita Sweeney MD [address] [facility], 2nd [place] [address] Social History Tobacco Use Types Packs/Day Years [...] Description 05/14/2025 1:40 PM EDT Office Visit [facility] [address] [place] [address], [address] [address] Wilton Deluca MD [address] [place] [address] 05/23/2025 4:00 PM EDT Office Visit [facility] 8 [place] [address] Naga Luis MD, MS [address] [address] Marlee Meraz, [facility]-CREDIT RISK SPECIALIST 8 [place] [address] 05/29/2025 1:30 PM EDT Office Visit [facility], Allergy and Critical Care Medicine [address] [place] [address] Naga Luis MD, MS [address] [address] 05/30/2025 4:00 PM EDT Office Visit [address] [address] Naga Luis MD, MS [address] [address] Marlee Meraz CCC-CREDIT RISK SPECIALIST [address] [place] [address] 06/06/2025 4:00 PM EDT Office Visit [address] [address] Naga Luis MD, MS [address] [address] Marlee Meraz CCC-CREDIT RISK SPECIALIST [address] [place] [address] 06/13/2025 4:00 PM EDT Office Visit [address] [address] Naga Luis MD, MS [address] [address] Marlee Meraz CCC-CREDIT RISK SPECIALIST [address] [place] [address] 06/14/2025 10:00 AM EDT Office Visit [facility] [address] [place] [address] [place] [address] Bonita Sweeney MD [address] [place] [address] [email or web address] 06/20/2025 2:00 PM EDT Office Visit [address] [place] [address] Naga Luis MD, MS [address] [address] Marlee Meraz CCC-CREDIT RISK SPECIALIST 8 [place] [address] 06/27/2025 2:00 PM EDT Office Visit [address] [place] [address] Naga Luis MD, MS [address] [address] Marlee Meraz CCC-CREDIT RISK SPECIALIST 8 [place] [address] 07/04/2025 2:00 PM EST Office Visit [address] [place] [address] Naga Luis MD, MS [address] [address] Marlee Meraz CCC-CREDIT RISK SPECIALIST 8 [place] [address] 07/11/2025 2:00 PM EST Office Visit [address] [place] [address] Naga Luis MD, MS [address] [address] [email or web address] Marlee Meraz CCC-CREDIT RISK SPECIALIST 8 [place] [address] 07/18/2025 2:00 PM EST Office Visit [facility] [address] [place] [address] Naga Luis MD, MS [address] [address] [email or web address] Marlee Meraz CCC-CREDIT RISK SPECIALIST 8 [place] [address] 07/26/2025 1:00 PM EST Office Visit [address] [place] [address] Naga Luis MD, MS [address] [address] [email or web address] Marlee Meraz CCC-CREDIT RISK SPECIALIST 8 [place] [address] 08/01/2025 2:00 PM EST Office Visit [facility] [address] [place] [address] Naga Luis MD, MS [address] [address] [email or web address] Marlee Meraz CCC-CREDIT RISK SPECIALIST 8 [place] [address] 08/08/2025 2:00 PM EST Office Visit [address] [place] [address] Naga Luis MD, MS [address] [address] [email or web address] Marlee Meraz [facility]-CREDIT RISK SPECIALIST 8 [place] [address] [email or web address] 08/15/2025 2:00 PM EST Office Visit [facility] 8 [place] [address] Naga Luis MD, MS [address] [address] [email or web address] Marlee Meraz, [facility]-CREDIT RISK SPECIALIST 8 [place] [address] [email or web address] documented as of this encounter Visit Diagnoses Not on filedocumented in this encounter Additional Health Concerns Infection Onset Date Last Indicated Resolved Time CoV-Risk 10/12/2023 10/12/2023 10/12/2023 6:15 PM EST COVID-19 10/12/2023 10/12/2023 11/02/2023 1:21 AM EST Assessment Noted Time PHQ-2 Depression Total Score: 0 12/25/19 22 4:05 PM EDT documented as of this encounter Care Teams Electrical Sign Servicer Relationship Specialty Start Date End Date Bonita Sweeney MD [address] [place] [address] [email or web address] PCP - General Internal Medicine 02/16/23 Scooter Gross MD [address] [place] [phone] [email or web address] Historical LMR Provider 06/13/17 Gema Mari, RN 10 [place] [address] [email or web address] iCMP Tube And Manifold BuilderCinder Dump Crane Operator 03/18/23 Jennie Brown [address] [place] [address] [email or web address] iCMP Community Pin Ball Machine Mechanic 01/18/25 01/23/25 documented as of this encounter Additional Source Comments The information contained in this document represents components of the legal health record. It is not the complete legal health record.[facility]
--- OUTSIDE RECORDS SUMMARY | 2025-04-30 15:15 | XMS_ITS | Encounter Summary ---
Author Organization [facility] Address [address] [place] [address] Phone Care Team Providers Care Dance Artist Name Role Phone Chaitanya Williamson MD Unavailable + Adi Tim MD Unavailable Antonio Travis MD Unavailable Scooter Gross MD Unavailable Theron Lee MD Unavailable Wayne Miles MD Unavailable Paul Lake MD Unavailable Flavio Travis MD Unavailable Scooter Gross MD Primary Care Provider + Tri Cordova RNplanishing press operator Provider Dari Javier MD Primary Care Provider [email or web address] Bonita Sweeney MD Primary Care Provider [phone] Gema Mari RN Unavailable [phone] Bonita Sweeney MD Primary Care Provider [phone] Gema Mari RN Unavailable [phone] Jennie Brown Unavailable yu Encounter Details Date Type Department Care Team (Late st Contact Info) Description 08/02/2018 Procedure Pass [facility], [facility] - [address] [place] [address] Social History Tobacco Use Types Packs/Day Years [...] Encounters Date Type Department Care Team (Late Contact Info) Description 05/14/2025 1:40 PM EDT Office Visit [facility] [address] [place] [address] Wilton Deluca MD [address] [place] [address] 05/23/2025 4:00 PM EDT Office Visit [facility] 8 [place] [address] Naga Luis MD, [place] [address] [address] Marlee Meraz, [facility]-HOSPITAL UNIT CLERK 8 [place] [address] 05/29/2025 1:30 PM EDT Office Visit [facility] Pulmonary, Allergy and Critical Care Medicine [address] [place] [address] Naga Luis MD, MS [address] [address] 05/30/2025 4:00 PM EDT Office Visit [facility] [address] [place] [address] Naga Luis MD, MS [address] [address] Marlee Meraz CCC-HOSPITAL UNIT CLERK 8 [place] [address] 06/06/2025 4:00 PM EDT Office Visit [facility] [address] [place] [address] Naga Luis MD, MS [address] [address] Marlee Meraz CCC-HOSPITAL UNIT CLERK 8 [place] [address] 06/13/2025 4:00 PM EDT Office Visit [address] [place] [address] Naga Luis MD, MS [address] [address] Marlee Meraz CCC-HOSPITAL UNIT CLERK 8 [place] [address] 06/14/2025 10:00 AM EDT Office Visit [facility] [address] [place] [address] [place] [address] Bonita Sweeney MD [address] [place] [address] 06/20/2025 2:00 PM EDT Office Visit [facility] [address] [place] [address] Naga Luis MD, MS [address] [address] [email or web address] Marlee Meraz CCC-HOSPITAL UNIT CLERK 8 [place] [address] 06/27/2025 2:00 PM EDT Office Visit [address] [place] [address] Naga Luis MD, MS [address] [address] [email or web address] Marlee Meraz CCC-HOSPITAL UNIT CLERK [address] [place] [address] 07/04/2025 2:00 PM EST Office Visit [address] [place] [address] Naga Luis MD, MS [address] [address] [email or web address] Marlee Meraz CCC-HOSPITAL UNIT CLERK [address] [place] [address] 07/11/2025 2:00 PM EST Office Visit [address] [place] [address] Naga Luis MD, MS [address] [address] Marlee Meraz CCC-HOSPITAL UNIT CLERK [address] [place] [address] 07/18/2025 2:00 PM EST Office Visit [address] [place] [address] Naga Luis MD, MS [address] [address] [email or web address] Marlee Meraz CCC-HOSPITAL UNIT CLERK 8 [place] [address] 07/26/2025 1:00 PM EST Office Visit [address] [place] [address] Naga uLis MD, MS [address] [address] [email or web address] Marlee Meraz CCC-HOSPITAL UNIT CLERK [address] [place] [address] 08/01/2025 2:00 PM EST Office Visit [address] [place] [address] Naga Luis MD, MS [address] [address] [email or web address] Marlee Meraz CCC-HOSPITAL UNIT CLERK [address] [place] [address] 08/08/2025 2:00 PM EST Office Visit [address] [place] [address] Naga Luis MD, MS [address] [address] [email or web address] Marlee Meraz CCC-HOSPITAL UNIT CLERK [address] [place] [address] 08/15/2025 2:00 PM EST Office Visit [address] [place] [address] Naga Luis MD, MS [address] [address] [email or web address] Marlee Meraz, CCC-HOSPITAL UNIT CLERK 8 [place] [address] [email or web address] documented as of this encounter Visit Diagnoses [...] documented as of this encounter Care Teams Dance Artist Relationship Specialty Start Date End Date Scooter Gross MD [address] [place], [place] [address] [place] [phone] [email or web address] PCP - General 09/01/17 04/07/20 Tri Cordova RN [address] [place] [address] [email or web address] PCP - General Internal Medicine 04/08/20 08/11/20 Dari Javier MD [email or web address] PCP - General Family Medicine 08/12/20 04/04/22 Bonita Sweeney MD [address] [place] [address] [email or web address] PCP - General Internal Medicine 04/05/22 02/15/23 Bonita Sweeney MD [address] [place] [address] [place] [address] [email or web address] PCP - General Internal Medicine 02/16/23 Chaitanya Williamson MD [address] [place] [address] [email or web address] Historical LMR Provider 06/13/17 09/05/21 Adi Tim MD [address] [place] [address] Historical LMR Provider 06/13/17 Antonio Travis MD [address] [place] [address] [phone] [email or web address] Historical LMR Provider 06/13/17 09/05/21 Scooter Gross MD [address] [place] [address] [place] [address] [email or web address] Historical LMR Provider 06/13/17 Theron Lee MD [address] [place] [address] [email or web address] Historical LMR Provider 06/13/17 09/05/21 Wayne Miles MD [address] [place] [address] Historical LMR Provider 06/13/17 2 Paul Lake MD [address] [place] [address] [phone] Historical LMR Provider 06/13/17 2 Flavio Travis MD [address] [place] [address] [address] [place] [phone] [email or web address] Historical LMR Provider 06/13/17 09/05/21 Gema Mari RN [address] [place] [address] [email or web address] iCMP Manager Internship 09/10/22 10/07/22 Gema Mari RN [address] [place] [address] iCMP Manager InternshipSupervisor Microbiology Technologists 03/18/23 Jennie Brown [address] [place] [phone] [email or web address] Community Medical Office Worker 01/18/25 01/23/25 documented as of this encounter Additional Source Comments The information contained in this document represents components of the legal health record. It is not the complete legal health record.[facility]
--- OUTSIDE RECORDS SUMMARY | 2025-04-30 15:15 | XMS_ITS | Encounter Summary ---
Author Organization [facility] Address [address] [place] [address] Phone Care Team Providers Care Medicaid Analyst Name Role Phone Scooter Gross MD Unavailable [phone] Dari Javier MD Primary Care Provider [email or web address] Bonita Sweeney A Primary Care Provider [phone] Gema Mari RN Unavailable [phone] Bonita Sweeney A Primary Care Provider Gema Mari RN Unavailable [phone] Jennie Brown Unavailable yu [email or web address] Reason for Referral * MRI/CAT Scan - Closed Specialty Diagnoses / Procedures Referred By Contlaura t Referred To Contact Radiology Diagnoses Ascending aortic aneurysm Procedures CT Angio Chest David Roberts MD 2 [place] [address] Phone: tel: fax: Referral ID Status Reason Start Date Expiration Date Visits Re quested Visits Authorized [id number] Closed 12/16/2021 12/16/2022 1 1 Encounter Details Date Type Department Care Team ([facility] st Contact Info) Description 12/16/2021 Transcribe Orders Virtual Department [address] [place] [address] David Roberts MD [address] [place] [address] Ascending aortic aneurysm (Primary Dx) Social History Tobacco Use Types [...] high school, GED, job training, learning the Guamanian language, technical skills, or developing parenting skills)? [...] Description 05/14/2025 1:40 PM EDT Office Visit [facility] [address] [place] [address] 3rd Floor, [address] [place], [place] [address] Wilton Deluca MD [address] [place] [address], [address] [place] [address] 05/23/2025 4:00 PM EDT Office Visit [facility] [address] [place] [address] Naga Luis MD, MS [address] [address] Marlee Meraz CCC-RN UTILIZATION MANAGEMENT UM 8 [place] [address] 05/29/2025 1:30 PM EDT Office Visit [facility] [place]monary, Allergy and Critical Care Medicine [address] [place] [address] Naga Luis MD, MS [address] [address] 05/30/2025 4:00 PM EDT Office Visit [facility] [address] [place] [address] Naga Luis MD, MS [address] [address] Marlee Meraz CCC-RN UTILIZATION MANAGEMENT UM 8 [place] [address] 06/06/2025 4:00 PM EDT Office Visit [facility] [address] [place] [address] Naga Luis MD, MS [address] [address] Marlee Meraz CCC-RN UTILIZATION MANAGEMENT UM 8 [place] [address] 06/13/2025 4:00 PM EDT Office Visit [facility] [address] [place] [address] Naga Luis MD, MS [address] [address] Marlee Meraz CCC-RN UTILIZATION MANAGEMENT UM 8 [place] [address] 06/14/2025 10:00 AM EDT Office Visit [address] [place] [address] Bonita Sweeney MD [address] [place] [address] 06/20/2025 2:00 PM EDT Office Visit [facility] [address] [place] [address] Naga Luis MD, MS [address] [address] Marlee Meraz CCC-RN UTILIZATION MANAGEMENT UM 8 [place] [address] 06/27/2025 2:00 PM EDT Office Visit [facility] [address] [place] [address] Naga Luis MD, MS [address] [address] Marlee Meraz CCC-RN UTILIZATION MANAGEMENT UM 8 [place] [address] 07/04/2025 2:00 PM EST Office Visit [address] [place] [address] Naga Luis MD, MS [address] [address] Marlee Meraz CCC-RN UTILIZATION MANAGEMENT UM 8 [place] [address] 07/11/2025 2:00 PM EST Office Visit [address] [address] Naga Luis MD, MS [address] [address] [email or web address] Marlee Meraz CCC-RN UTILIZATION MANAGEMENT UM [address] [place] [address] 07/18/2025 2:00 PM EST Office Visit [address] [address] Naga Luis MD, MS [address] [address] Marlee Meraz CCC-RN UTILIZATION MANAGEMENT UM [address] [place] [address] 07/26/2025 1:00 PM EST Office Visit [address] [place] [address] Naga Luis MD, MS [address] [address] Marlee Meraz CCC-RN UTILIZATION MANAGEMENT UM [address] [place] [address] 08/01/2025 2:00 PM EST Office Visit [address] [place] [address] Naga Luis MD, MS [address] [address] Marlee Meraz CCC-RN UTILIZATION MANAGEMENT UM 8 [place] [address] 08/08/2025 2:00 PM EST Office Visit [facility] 8 [place] [address] Naga Luis MD, MS [address] [address] Marlee Meraz CCC-RN UTILIZATION MANAGEMENT UM 8 [place] [address] 08/15/2025 2:00 PM EST Office Visit [facility] 8 [place] [address] Naga Luis MD, MS [address] [address] Marlee Meraz CCC-RN UTILIZATION MANAGEMENT UM 8 [place] [address] documented as of this encounter Results * CT ANGIO CHEST WITH CONTRAST (12/23/2021 9:29 AM EDT) Anatomical Region Laterality Modality Chest, Thoracic Vasculature Comp uted Tomography 12/23/2021 6:41 PM EDT Impressions 12/23/2021 7:07 PM EDT 1.Thoracic aortic aneurysm, with ascending aorta measuring 5.0 cm. 2.Additional finding as above. Narrative 12/23/2021 7:[address] ANGIO CHEST WITH CONTRAST CTA CHEST BEFORE AND AFTER IV CONTRAST. 3D IMAGES WITH REFORMATTING AND POST-PROCESSING RECONSTRUCTIONS WERE PERFORMED AND INTERPRETED. COMPARISON: Chest radiograph on July 10, 2021 INDICATIONS: Ascending aortic aneurysm VASCULAR FINDINGS: The aortic root is aneurysmal and the sinotubular junction is preserved. The ascending aorta is aneurysmal. There is a left 3 vessel aortic arch. The descending thoracic aorta is ectatic There are moderate calcified and noncalcified atherosclerotic plaques in the aorta and its major branches. There is no evidence of a flap within the aorta to suggest a dissection. No thoracic aortic devices are evident. THORACIC AORTA Thoracic aortic measurements were performed using axial, sagittal, and coronal planes. Sinotubular junction:3.0 cm Ascending aorta: 5.0 cm Aortic arch: 4.1 cm Descending aorta: 2.9 cm Diaphragmatic hiatus: 2.8 cm The accessory left hepatic artery, celiac artery and SMA are patent. NON VASCULAR FINDINGS: LUNGS: Central airways are patent. No pulmonary consolidation. Few calcified granulomas in the right lung (5:159). There is a 0.4 cm nodule in the anterior right upper lobe (5:78), and the 0.5 cm groundglass nodule abutting the right fissure (5:124). MEDIASTINUM: Unremarkable. Upper abdomen: Multiple calcified punctate splenic granulomas. Vascular calcifications. Partially included dilatation of the left renal pelvis. LYMPH NODES: No lymphadenopathy. BONES AND SOFT TISSUES: No destructive bone lesions. Prominent collateral vessel over the right chest wall. Procedure Note Lg Orr MD - 12/23/2021 CT ANGIO CHEST WITH CONTRAST CTA CHEST BEFORE AND AFTER IV CONTRAST. 3D IMAGES WITH REFORMATTING ANDPOST-PROCESSING RECONSTRUCTIONS WERE PERFORMED AND INTERPRETED. COMPARISON: Chest radiograph on July 10, 2021 INDICATIONS: Ascending aortic aneurysm VASCULAR FINDINGS: The aortic root is aneurysmal and the sinotubular junction is preserved. The ascending aorta is aneurysmal. There is a left 3 vessel aortic arch. The descending thoracic aorta is ectatic There are moderate calcified and noncalcified atherosclerotic plaques inthe aorta and its major branches. There is no evidence of a flap withinthe aorta to suggest a dissection. No thoracic aortic devices are evident. THORACIC AORTA Thoracic aortic measurements were performed using axial, sagittal, andcoronal planes. Sinotubular junction:3.0 cm Ascending aorta: 5.0 cm Aortic arch: 4.1 cm Descending aorta: 2.9 cm Diaphragmatic hiatus: 2.8 cm The accessory left hepatic artery, celiac artery and SMA are patent. NON VASCULAR FINDINGS: LUNGS: Central airways are patent. No pulmonary consolidation. Fewcalcified granulomas in the right lung (5:159). There is a 0.4 cm nodulein the anterior right upper lobe (5:78), and the 0.5 cm groundglass noduleabutting the right fissure (5:124). MEDIASTINUM: Unremarkable. Upper abdomen: Multiple calcified punctate splenic granulomas. Vascularcalcifications. Partially included dilatation of the left renal pelvis. LYMPH NODES: No lymphadenopathy. BONES AND SOFT TISSUES: No destructive bone lesions. Prominent collateralvessel over the right chest wall. IMPRESSION: 1.Thoracic aortic aneurysm, with ascending aorta measuring 5.0 cm. 2.Additional finding as above. David Roberts MD IMG CT CHEST Final Res ult documented in this encounter Visit Diagnoses Diagnosis Ascending aortic aneurysm- Primary Thoracic aneurysm without mention of rupture Ascending aortic aneurysm Thoracic aneurysm without mention of rupture documented in this encounter Additional Health Concerns Infection Onset Date Last Indicated Resolved Time CoV-Risk 08/29/2022 08/29/2022 09/09/2022 1:24 AM EST CoV-Risk 10/12/2023 10/12/2023 10/12/2023 6:15 PM EST COVID-19 10/12/2023 10/12/2023 11/02/2023 1:21 AM EST Assessment Noted Time PHQ-2 Depression Total Score: 0 07/06/20 18 10:02 AM EST documented as of this encounter Care Teams Medicaid Analyst Relationship Specialty Start Date End Date Dari Javier MD [email or web address] PCP - General Family Medicine 08/12/20 04/04/22 Bonita Sweeney MD [address] [place] [address], 2nd [place] [address] PCP - General Internal Medicine 04/05/22 02/15/23 Bonita Sweeney MD [address] [place] [address], 2[address] [place] [address] [email or web address] PCP - General Internal Medicine 02/16/23 Scooter Gross MD [address] [place] [address] [address] [place] [address] [email or web address] Historical LMR Provider 06/13/17 Gema Mari RN [address] [place] [address] [email or web address] iCMP Computer Numeric Control Setter 09/10/22 10/07/22 Gema Mari RN [address] [place] [address] [email or web address] iCMP Computer Numeric Control SetterPatient Service Rep 03/18/23 Jennie Brown [address] [place] [address] [email or web address] Community Dialysis Nurse 01/18/25 01/23/25 documented as of this encounter Additional Source Comments The information contained in this document represents components of the legal health record. It is not the complete legal health record.[facility]
--- OUTSIDE RECORDS SUMMARY | 2025-04-30 15:15 | XMS_ITS | Encounter Summary ---
Author Organization [facility] Address [address] [place] [address] Phone Care Team Providers Care Cable Puller Name Role Phone Scooter Gross MD Unavailable Bonita Sweeney A Primary Care Provider [phone] Gema Mari RN Unavailable [phone] Bonita Sweeney A Primary Care Provider [phone] Gema Mari RN Unavailable [phone] Jennie Brown Unavailable yu Encounter Details Date Type Department Care Team (Late st Contact Info) Description 08/29/2022 Procedure Pass [facility], Ct Scan - [address] [address] Social History Tobacco Use Types Packs/Day Years [...] AM EST documented as of this encounter Functional Status * Calculated C-SSRS Risk Score (Lifetime/Recent) Answer Date of Assessment Author No Risk Indicated 08/29/2022 10:11 PM Sarmad Maynard RN * [place] Suicide Severity Rating Scale (Screener/Recent Self-Report) Question Answer Date of Assessment Author 1. Wish to be (Past 1 Month) No 023 10:11 PM Sarmad Maynard, LAMIN 2. Non-Specific Active Suici melonie Thoughts (Past 1 Month) No 08/29/2022 10:11 PM Sal Maynard RN 6. Suicidal Behavior (Lifetime) No 3 10:11 PM Sarmad Maynard, LAMIN documented as of this encounter Plan of Treatment Upcoming Encounters Date Type Department Care Team (Late st Contact Info) Description 05/14/2025 1:40 PM EDT Office Visit [facility] [address] [place] [address] 3rd Floor, [address] [place] [address] Wilton Deluca MD [address], [address] [place] [address] 05/23/2025 4:00 PM EDT Office Visit [facility] [address] [place] [address] Naga Luis MD, MS [address] [address] Marlee Meraz CCC-SINGLE NEEDLE TUFTING MACHINE OPERATOR 8 [place] [address] 05/29/2025 1:30 PM EDT Office Visit [facility], Allergy and Critical Care Medicine [address] [place] [address] Naga Luis MD, MS [address] [address] 05/30/2025 4:00 PM EDT Office Visit [facility] [address] [place] [address] Naga Luis MD, MS [address] [address] Marlee Meraz CCC-SINGLE NEEDLE TUFTING MACHINE OPERATOR 8 [place] [address] 06/06/2025 4:00 PM EDT Office Visit [facility] [address] [place] [address] Naga Luis MD, MS [address] [address] Marlee Meraz CCC-SINGLE NEEDLE TUFTING MACHINE OPERATOR 8 [place] [address] 06/13/2025 4:00 PM EDT Office Visit [facility] [address] [place] [address] Naga Luis MD, MS [address] [address] Marlee Meraz CCC-SINGLE NEEDLE TUFTING MACHINE OPERATOR 8 [place] [address] 06/14/2025 10:00 AM EDT Office Visit [facility] [address] [place] [address] Bonita Sweeney MD [address] [place] [address] [email or web address] 06/20/2025 2:00 PM EDT Office Visit [address] [address] Naga Luis MD, MS [address] [address] Marlee Meraz CCC-SINGLE NEEDLE TUFTING MACHINE OPERATOR 8 [place] [address] 06/27/2025 2:00 PM EDT Office Visit [address] [place] [address] Naga Luis MD, MS [address] [address] Marlee Meraz CCC-SINGLE NEEDLE TUFTING MACHINE OPERATOR 8 [place] [address] 07/04/2025 2:00 PM EST Office Visit [address] [place] [address] Naga Luis MD, MS [address] [address] Marlee Meraz CCC-SINGLE NEEDLE TUFTING MACHINE OPERATOR 8 [place] [address] 07/11/2025 2:00 PM EST Office Visit [facility] 8 [place] [address] Naga Luis MD, MS [address] [address] Marlee Meraz CCC-SINGLE NEEDLE TUFTING MACHINE OPERATOR 8 [place] [address] 07/18/2025 2:00 PM EST Office Visit [address] [address] Naga Luis MD, MS [address] [address] Marlee Meraz CCC-SINGLE NEEDLE TUFTING MACHINE OPERATOR 8 [place] [address] 07/26/2025 1:00 PM EST Office Visit [facility] 8 [place] [address] Naga Luis MD, MS [address] [address] Marlee Meraz CCC-SINGLE NEEDLE TUFTING MACHINE OPERATOR 8 [place] [address] 08/01/2025 2:00 PM EST Office Visit [facility] 8 [place] [address] Naga Luis MD, MS [address] [address] Marlee Meraz CCC-SINGLE NEEDLE TUFTING MACHINE OPERATOR 8 [place] [address] 08/08/2025 2:00 PM EST Office Visit [facility] 8 [place] [address] Naga Luis MD, MS [address] [address] Marlee Meraz CCC-SINGLE NEEDLE TUFTING MACHINE OPERATOR 8 [place] [address] 08/15/2025 2:00 PM EST Office Visit [facility] 8 [place] [address] Naga Luis MD, MS [address] [address] Marlee Meraz CCC-SINGLE NEEDLE TUFTING MACHINE OPERATOR 8 [place] [address] documented as of this encounter Visit Diagnoses [...] documented as of this encounter Care Teams Cable Puller Relationship Specialty Start Date End Date Bonita Sweeney MD [address] [place] [address] PCP - General Internal Medicine 04/05/22 02/15/23 Bonita Sweeney MD [address] [place] [address], 2nd [place] [address] [email or web address] PCP - General Internal Medicine 02/16/23 Scooter Gross MD [address] [place] [address] [place] [address] [email or web address] Historical LMR Provider 06/13/17 Gema Mari RN [address] [place] [phone] [email or web address] iCMP Guillotine Trimmer 09/10/22 10/07/22 Gema Mari RN [address] [place] [phone] [email or web address] iCMP Guillotine TrimmerRock Crushing Machine Operator 03/18/23 Jennie Brown [address] [place] [address] [email or web address] [facility] Community Cfo 01/18/25 01/23/25 documented as of this encounter Additional Source Comments The information contained in this document represents components of the legal health record. It is not the complete legal health record.[facility]
--- OUTSIDE RECORDS SUMMARY | 2025-04-30 15:15 | XMS_ITS | Encounter Summary ---
Author Organization [facility] Address [address] [facility] [address] [place] [address] Phone Care Team Providers Care Mechanical Pencils Assembler Name Role Phone Scooter Gross MD Unavailable [phone] Bonita Sweeney MD Primary Care Provider [phone] Gema Mari RN Unavailable Jennie Brown Unavailable yu Encounter Details Date Type Department Care Team (Latest Contact Info) Description 01/17/2024 Transcribe Orders Virtual Department [address] [place] [address] [phone] Shorty Senior MD [address] [place] [address], [address] [place], [place] [phone] [email or web address] Nonintractable epilepsy without status epilepticus, unspecified epilepsy type (Primary Dx); Meningioma Social History Tobacco Use Types Packs/Day Years [...] Description 05/14/2025 1:40 PM EDT Office Visit [facility] [address], [address] [place] [address] Wilton Deluca MD [address] [address] 05/23/2025 4:00 PM EDT Office Visit [facility] [address] [place] [address] Naga Luis MD, MS 10 [facility] 2nd [place] [address] Marlee Meraz CCC-SQUARE SHEAR OPERATOR 8 [place] [address] 05/29/2025 1:30 PM EDT Office Visit [facility] Pulmonary, Allergy and Critical Care Medicine [address] [place] [address] Naga Luis MD, MS [address] [address] 05/30/2025 4:00 PM EDT Office Visit [facility] 8 [place] [address] Naga Luis MD, MS [address] [address] Marlee Meraz CCC-SQUARE SHEAR OPERATOR 8 [place] [address] 06/06/2025 4:00 PM EDT Office Visit [address] [place] [address] Naga Luis MD, MS [address] [address] Marlee Meraz CCC-SQUARE SHEAR OPERATOR 8 [place] [address] 06/13/2025 4:00 PM EDT Office Visit [facility] [address] [place] [address] Naga Luis MD, MS [address] [address] Marlee Meraz CCC-SQUARE SHEAR OPERATOR 8 [place] [address] 06/14/2025 10:00 AM EDT Office Visit [facility] [address] [place] [address] [place] [address] Bonita Sweeney MD [address] [place] [address] 06/20/2025 2:00 PM EDT Office Visit [address] [address] Naga Luis MD, MS [address] [address] Marlee Meraz CCC-SQUARE SHEAR OPERATOR [address] [place] [address] 06/27/2025 2:00 PM EDT Office Visit [address] [address] Naga Luis MD, MS [address] [address] Marlee Meraz CCC-SQUARE SHEAR OPERATOR [address] [place] [address] 07/04/2025 2:00 PM EST Office Visit [address] [address] Naga Luis MD, MS [address] [address] Marlee Meraz CCC-SQUARE SHEAR OPERATOR [address] [place] [address] 07/11/2025 2:00 PM EST Office Visit [address] [place] [address] Naga Luis MD, MS [address] [address] [email or web address] Marlee Meraz CCC-SQUARE SHEAR OPERATOR 8 [place] [address] 07/18/2025 2:00 PM EST Office Visit [address] [address] Naga Luis MD, MS [address] [address] [email or web address] Marlee Meraz CCC-SQUARE SHEAR OPERATOR [address] [place] [address] 07/26/2025 1:00 PM EST Office Visit [address] [address] Naga Luis MD, MS [address] [address] [email or web address] Marlee Meraz CCC-SQUARE SHEAR OPERATOR [address] [place] [address] 08/01/2025 2:00 PM EST Office Visit [address] [address] Naga Luis MD, MS [address] [address] [email or web address] Marlee Meraz CCC-SQUARE SHEAR OPERATOR [address] [place] [address] 08/08/2025 2:00 PM EST Office Visit [address] [place] [address] Naga Luis MD, MS [address] [address] [email or web address] Marlee Meraz, CCC-SQUARE SHEAR OPERATOR 8 [place] [address] [email or web address] 08/15/2025 2:00 PM EST Office Visit [facility] 8 [place] [address] Naga Luis MD, MS [address] [address] [email or web address] Marlee Meraz, CCC-SQUARE SHEAR OPERATOR 8 [place] [address] [email or web address] documented as of this encounter Visit Diagnoses Diagnosis Nonintractable epilepsy without status epilepticus, unspecified epilepsy type- Primary Meningioma Benign neoplasm of cerebral meninges documented in this encounter Additional Health Concerns Assessment Noted Time PHQ-2 Depression Total Score: 0 04/22/20 23 3:13 PM EDT documented as of this encounter Care Teams Mechanical Pencils Assembler Relationship Specialty Start Date End Date Bonita Sweeney MD [address] [place] [address] [email or web address] PCP - General Internal Medicine 02/16/23 Scooter Gross MD [address] [place] [address] [email or web address] Historical LMR Provider 06/13/17 Gema Mari, RN [address] [place] [address] [email or web address] iCMP Bobbin Cleaning Machine OperatorBacking In Machine Tender 03/18/23 Jennie Brown [address] [place] [phone] [email or web address] iCMP Community Food And Beverage Analyst 01/18/25 01/23/25 documented as of this encounter Additional Source Comments The information contained in this document represents components of the legal health record. It is not the complete legal health record.[facility]
--- OUTSIDE RECORDS SUMMARY | 2025-04-30 15:15 | XMS_ITS | Encounter Summary ---
Author Organization [facility] Address [address] [facility] [address] [place] [address] Phone Care Team Providers Care Records Manager Name Role Phone Scooter Gross MD Unavailable [phone] Bonita Sweeeny MD Primary Care Provider [phone] Gema Mari RN Unavailable [phone] Jennie Brown Unavailable yu Encounter Details Date Type Department Care Team (Late st Contact Info) Description 02/09/2024 Procedure Pass Echo [facility] [address] [place] [address] Social History Tobacco Use Types Packs/Day Years [...] Description 05/14/2025 1:40 PM EDT Office Visit [facility] [address] [place] [address] 3rd [facility], [address] [address] Wilton Deluca MD [address] [place] [address] 05/23/2025 4:00 PM EDT Office Visit [facility] 8 [place] [address] Naga Luis MD, MS 10 [facility] 2nd [place] [address] Marlee Meraz, [facility]-JIRA ADMINISTRATOR 8 [place] [address] 05/29/2025 1:30 PM EDT Office Visit [facility] Pul[facility], Allergy and Critical Care Medicine 10 [place] [address] Naga Luis MD, MS [address] [address] 05/30/2025 4:00 PM EDT Office Visit [facility] 8 [place] [address] Naga Luis MD, MS [address] [address] Marlee Meraz CCC-JIRA ADMINISTRATOR 8 [place] [address] 06/06/2025 4:00 PM EDT Office Visit [address] [address] Naga Luis MD, MS [address] [address] Marlee Meraz CCC-JIRA ADMINISTRATOR 8 [place] [address] 06/13/2025 4:00 PM EDT Office Visit [address] [address] Naga Luis MD, MS [address] [address] Marlee Meraz CCC-JIRA ADMINISTRATOR [address] [place] [address] 06/14/2025 10:00 AM EDT Office Visit [facility] [address] [place] [address] [place] [address] Bonita Sweeney MD [address] [place] [address] 06/20/2025 2:00 PM EDT Office Visit [address] [place] [address] Naga Luis MD, MS [address] [address] Marlee Meraz CCC-JIRA ADMINISTRATOR 8 [place] [address] 06/27/2025 2:00 PM EDT Office Visit [address] [place] [address] Naga Luis MD, MS [address] [address] Marlee Meraz CCC-JIRA ADMINISTRATOR [address] [place] [address] 07/04/2025 2:00 PM EST Office Visit [address] [place] [address] Naga Luis MD, MS [address] [address] Marlee Meraz CCC-JIRA ADMINISTRATOR 8 [place] [address] 07/11/2025 2:00 PM EST Office Visit [address] [place] [address] Naga Luis MD, MS [address] [address] Marlee Meraz CCC-JIRA ADMINISTRATOR [address] [place] [address] 07/18/2025 2:00 PM EST Office Visit [address] [place] [address] Naga Luis MD, MS [address] [address] Marlee Meraz CCC-JIRA ADMINISTRATOR 8 [place] [address] 07/26/2025 1:00 PM EST Office Visit [address] [address] Naga Luis MD, MS [address] [address] Marlee Meraz CCC-JIRA ADMINISTRATOR [address] [place] [address] 08/01/2025 2:00 PM EST Office Visit [address] [address] Naga Luis MD, MS [address] [address] Marlee Meraz CCC-JIRA ADMINISTRATOR 8 [place] [address] 08/08/2025 2:00 PM EST Office Visit [address] [place] [address] Naga Luis MD, MS [address] [address] Marlee Meraz CCC-JIRA ADMINISTRATOR [address] [place] [address] 08/15/2025 2:00 PM EST Office Visit [facility] 8 [place] [address] Naga Luis MD, MS [address] [address] Marlee Meraz, [facility] ADMINISTRATOR 8 [place] [address] documented as of this encounter Visit Diagnoses Not on filedocumented in this encounter Additional Health Concerns Assessment Noted Time PHQ-2 Depression Total Score: 0 06/05/20 24 4:05 PM EDT documented as of this encounter Care Teams Records Manager Relationship Specialty Start Date End Date Bonita Sweeney MD [address] [place] [address] PCP - General Internal Medicine 02/16/23 Scooter Gross MD [address] [place] [phone] [email or web address] Historical LMR Provider 06/13/17 Gema Mari, RN [address] [place] [address] [phone] iCMP Manager QualityMetal Lather 03/18/23 Jennie Brown [address] [place] [address] [email or web address] iCMP Community Belt Repairer 01/18/25 01/23/25 documented as of this encounter Additional Source Comments The information contained in this document represents components of the legal health record. It is not the complete legal health record.[facility]
--- OUTSIDE RECORDS SUMMARY | 2025-04-30 15:16 | XMS_ITS | Encounter Summary ---
Author Organization [facility] Address [address] [facility] [address] [place] [address] Phone Care Team Providers Care Vinyl Installer Name Role Phone Scooter Gross MD Unavailable Bonita Sweeney MD Primary Care Provider [phone] Gema Mari RN Unavailable Jennie Brown Unavailable yu Encounter Details Date Type Department Care Team (Latest Contact Info) Description 12/09/2023 Transcribe Orders Virtual Department [address] [place] [address] [phone] Shorty Senior MD [address] [place] [address], [address] [place], [place] [phone] [email or web address] Ataxia (Primary Dx); Memory loss Social History Tobacco Use Types Packs/Day Years [...] Description 05/14/2025 1:40 PM EDT Office Visit [facility] [address] [place] [address] 3rd [facility], [address] [place] [address] Wilton Deluca MD [address] [place] [address] 05/23/2025 4:00 PM EDT Office Visit [facility] [address] [place] [address] Naga Luis MD, MS [address] [address] Marlee Meraz, [facility]-SIGNALS INTELLIGENCE ANALYSIS MANAGER [address] [place] [address] 05/29/2025 1:30 PM EDT Office Visit [facility] Pulmonary, Allergy and Critical Care Medicine [address] [place] [address] Naga Luis MD, MS [address] [address] 05/30/2025 4:00 PM EDT Office Visit [facility] 8 [place] [address] Naga Luis MD, MS [address] [address] Marlee Meraz CCC-SIGNALS INTELLIGENCE ANALYSIS MANAGER 8 [place] [address] 06/06/2025 4:00 PM EDT Office Visit [facility] 8 [place] [address] Naga Luis MD, MS [address] [address] Marlee Meraz CCC-SIGNALS INTELLIGENCE ANALYSIS MANAGER 8 [place] [address] 06/13/2025 4:00 PM EDT Office Visit [facility] 8 [place] [address] Naga Luis MD, MS [address] [address] Marlee Meraz CCC-SIGNALS INTELLIGENCE ANALYSIS MANAGER 8 [place] [address] 06/14/2025 10:00 AM EDT Office Visit [facility] [address] [place] [address] Bonita Sweeney MD [address] [place] [address] 06/20/2025 2:00 PM EDT Office Visit [address] [place] [address] Naga Luis MD, MS [address] [address] Marlee Meraz CCC-SIGNALS INTELLIGENCE ANALYSIS MANAGER [address] [place] [address] 06/27/2025 2:00 PM EDT Office Visit [address] [place] [address] Naga Luis MD, MS [address] [address] Marlee Meraz CCC-SIGNALS INTELLIGENCE ANALYSIS MANAGER 8 [place] [address] 07/04/2025 2:00 PM EST Office Visit [address] [place] [address] Naga Luis MD, MS [address] [address] Marlee Meraz CCC-SIGNALS INTELLIGENCE ANALYSIS MANAGER [address] [place] [address] 07/11/2025 2:00 PM EST Office Visit [address] [place] [address] Naga Luis MD, MS [address] [address] [email or web address] Marlee Meraz CCC-SIGNALS INTELLIGENCE ANALYSIS MANAGER [address] [place] [address] 07/18/2025 2:00 PM EST Office Visit [address] [place] [address] Naga Luis MD, MS [address] [address] [email or web address] Marlee Meraz CCC-SIGNALS INTELLIGENCE ANALYSIS MANAGER [address] [place] [address] 07/26/2025 1:00 PM EST Office Visit [address] [place] [address] Naga Luis MD, MS [address] [address] [email or web address] Marlee Meraz CCC-SIGNALS INTELLIGENCE ANALYSIS MANAGER [address] [place] [address] 08/01/2025 2:00 PM EST Office Visit [address] [place] [address] Naga Luis MD, MS [address] [address] [email or web address] Marlee Meraz CCC-SIGNALS INTELLIGENCE ANALYSIS MANAGER [address] [place] [address] 08/08/2025 2:00 PM EST Office Visit [address] [place] [address] Naga Luis MD, MS [address] [address] [email or web address] Marlee Meraz, CCC-SIGNALS INTELLIGENCE ANALYSIS MANAGER [address] [place] [address] [email or web address] 08/15/2025 2:00 PM EST Office Visit [facility] [address] [place] [address] Naga Luis MD, MS [address] [address] [email or web address] Marlee Meraz, [facility]-SIGNALS INTELLIGENCE ANALYSIS MANAGER [address] [place] [address] [email or web address] documented as of this encounter Visit Diagnoses Diagnosis Ataxia- Primary Lack of coordination Memory loss documented in this encounter Additional Health Concerns Assessment Noted Time PHQ-2 Depression Total Score: 0 04/22/20 3:13 PM EDT documented as of this encounter Care Teams Vinyl Installer Relationship Specialty Start Date End Date Bonita Sweeney MD [address] [place] [address] [email or web address] PCP - General Internal Medicine 02/16/23 Scooter Gross MD [address] [place] [phone] [email or web address] Historical LMR Provider 06/13/17 Gema Mari, RN [address] [place] [address] [phone] [email or web address] iCMP Mexican Food MakerShipfitter Helper 03/18/23 Jennie Brown [address] [place] [phone] [email or web address] iCMP Community Precision Grinder External 01/18/25 01/23/25 documented as of this encounter Additional Source Comments The information contained in this document represents components of the legal health record. It is not the complete legal health record.[facility]
--- OUTSIDE RECORDS SUMMARY | 2025-04-30 15:16 | XMS_ITS | Encounter Summary ---
Author Organization [facility] Address [address] [facility] [address] [place] [address] Phone Care Team Providers Care Manager Secondary Name Role Phone Scooter Gross MD Unavailable [phone] Bonita Sweeney MD Primary Care Provider [phone] Gema Mari RN Unavailable [phone] Jennie Brown Unavailable yu Encounter Details Date Type Department Care Team (Late st Contact Info) Description 08/25/2023 Procedure Pass [facility] Endoscopy Admitting Dept Virtual Department 30 [place], [place] [id number] Social History Tobacco Use Types Packs/Day Years [...] Description 05/14/2025 1:40 PM EDT Office Visit [facility] [address] [place] [address] 3rd [facility], [address] [place] [address] Wilton Deluca MD [address] [address] 05/23/2025 4:00 PM EDT Office Visit [facility] 8 [place] [address] Naga Luis MD, MS [address] [facility] 2nd [place] [address] Marlee Meraz, [facility]-DIORAMIST 8 [place] [address] 05/29/2025 1:30 PM EDT Office Visit [facility] Allergy [facility] Critical Care Medicine 10 [place] [address] Naga Luis MD, MS [address] [address] 05/30/2025 4:00 PM EDT Office Visit [facility] 8 [place] [address] Naga Luis MD, MS [address] [address] Marlee Meraz CCC-DIORAMIST 8 [place] [address] 06/06/2025 4:00 PM EDT Office Visit [address] [address] Naga Luis MD, MS [address] [address] Marlee Meraz CCC-DIORAMIST 8 [place] [address] 06/13/2025 4:00 PM EDT Office Visit [address] [address] Naga Luis MD, MS [address] [address] Marlee Meraz CCC-DIORAMIST 8 [place] [address] 06/14/2025 10:00 AM EDT Office Visit [address] [place] [address] Bonita Sweeney MD [address] [place] [address] [email or web address] 06/20/2025 2:00 PM EDT Office Visit [address] [place] [address] Naga Luis MD, MS [address] [address] Marlee Meraz CCC-DIORAMIST [address] [place] [address] 06/27/2025 2:00 PM EDT Office Visit [address] [address] Naga Luis MD, MS [address] [address] Marlee Meraz CCC-DIORAMIST [address] [place] [address] 07/04/2025 2:00 PM EST Office Visit [address] [address] Naga Luis MD, MS [address] [address] Marlee Meraz CCC-DIORAMIST [address] [place] [address] 07/11/2025 2:00 PM EST Office Visit [address] [place] [address] Naga Luis MD, MS [address] [address] Marlee Meraz CCC-DIORAMIST 8 [place] [address] 07/18/2025 2:00 PM EST Office Visit [address] [address] Naga Luis MD, MS [address] [address] Marlee Meraz CCC-DIORAMIST [address] [place] [address] 07/26/2025 1:00 PM EST Office Visit [address] [address] Naga Luis MD, MS [address] [address] Marlee Meraz CCC-DIORAMIST [address] [place] [address] 08/01/2025 2:00 PM EST Office Visit [address] [address] Naga Luis MD, MS [address] [address] Marlee Meraz CCC-DIORAMIST [address] [place] [address] 08/08/2025 2:00 PM EST Office Visit [address] [place] [address] Naga Luis MD, MS [address] [address] Marlee Meraz CCC-DIORAMIST 8 [place] [address] 08/15/2025 2:00 PM EST Office Visit [facility] 8 [place] [address] Naga Luis MD, MS [address] [address] Marlee Meraz, CCC-DIORAMIST 8 [place] [address] documented as of this encounter Visit Diagnoses Not on filedocumented in this encounter Additional Health Concerns Infection Onset Date Last Indicated Resolved Time CoV-Risk 10/12/2023 10/12/2023 10/12/2023 6:15 PM EST COVID-19 10/12/2023 10/12/2023 11/02/2023 1:21 AM EST Assessment Noted Time PHQ-2 Depression Total Score: 0 04/22/20 3:13 PM EDT documented as of this encounter Care Teams Manager Secondary Relationship Specialty Start Date End Date Bonita Sweeney MD [address] [place] [address] [email or web address] PCP - General Internal Medicine 02/16/23 Scooter Gross MD [address] [place] [address] [email or web address] Historical LMR Provider 06/13/17 Gema Mari, RN [address] [place] [address] [phone] [email or web address] iCMP Brake Lining Finisher AsbestosBaggage Porter 03/18/23 Jennie Brown [address] [place] [phone] [email or web address] iCMP Community Caseworker 01/18/25 01/23/25 documented as of this encounter Additional Source Comments The information contained in this document represents components of the legal health record. It is not the complete legal health record.[facility]
--- OUTSIDE RECORDS SUMMARY | 2025-04-30 15:16 | XMS_ITS | Encounter Summary ---
Author Organization [address] [address] Care Team Providers Care Floor Framer Name Role Phone Scooter Gross MD Primary Care Provider [phone] Encounter Details Date Type Department Care Team (Late st Contact Info) Description 09/14/2018 Scanned Document [facility] [address] [place] [address] Scooter Dudley MD [address] [place] [address] Social History Tobacco Use Types Packs/Day Years Used Date Smoking Tobacco: Every Day Cigarettes Smokeless Tobacco: Never Alcohol Use Standard Drinks/Week Comments No 0 (1 standard drink = 0.6 oz pur e alcohol) AUDIT-C Answer Date Recorded Frequency of Alcohol Consumption Never 09/13/2018 Average Number of Drinks Not on file 019 Frequency of Binge Drinking Not on file 08/29 Sex and Gender Information Value Date Recorded Sex Assigned at Not on file Legal Sex Male 2:16 PM EDT Gender Identity Not on file Sexual Orientation Not on file documented as of this encounter Plan of Treatment Not on file documented as of this encounter Visit Diagnoses Not on filedocumented in this encounter Care Teams Floor Framer Relationship Specialty Start Date [place] [address] PCP - General 09/13/18 documented as of this encounter
--- OUTSIDE RECORDS SUMMARY | 2025-04-30 15:16 | XMS_ITS | Encounter Summary ---
Author Organization [facility] Address [address] [place] [address] Phone Care Team Providers Care Ditch Inspector Name Role Phone Scooter Gross MD Unavailable [phone] Bonita Sweeney A Primary Care Provider [phone] Gema Mari RN Unavailable [phone] Bonita Sweeney A Primary Care Provider [phone] Gema Mari RN Unavailable [phone] Jennie Brown Unavailable yu Encounter Details Date Type Department Care Team (Late st Contact Info) Description 04/07/2022 Procedure Pass [facility] Endoscopy Admitting Dept Virtual Department [address] [place] [address] Social History Tobacco Use Types Packs/Day Years [...] high school, GED, job training, learning the Swedish language, technical skills, or developing parenting skills)? [...] Upcoming Encounters Date Type Department Care Team ([facility] st Contact Info) Description 05/14/2025 1:40 PM EDT Office Visit [facility] [address] [place] [address] 3rd [facility], [address] [address] Wilton Deluca MD [address] [place] [address] 05/23/2025 4:00 PM EDT Office Visit [facility] [address] [place] [address] Naga Luis MD, MS [address] [address] Marlee Meraz, [facility] [place]-ROTARY HELPER 8 [place] [address] 05/29/2025 1:30 PM EDT Office Visit [facility] Pulmonary, Allergy and Critical Care Medicine [address] [place] [address] Naga Luis MD, MS [address] [address] 05/30/2025 4:00 PM EDT Office Visit [facility] 8 [place] [address] Naga Luis MD, MS [address] [address] Marlee Meraz CCC-ROTARY HELPER 8 [place] [address] [email or web address] 06/06/2025 4:00 PM EDT Office Visit [address] [address] Naga Luis MD, MS [address] [address] Marlee Meraz CCC-ROTARY HELPER 8 [place] [address] [email or web address] 06/13/2025 4:00 PM EDT Office Visit [facility] 8 [place] [address] Naga Luis MD, MS [address] [address] Marlee Meraz CCC-ROTARY HELPER 8 [place] [address] 06/14/2025 10:00 AM EDT Office Visit [facility] [address] [place] [address] [place] [address] Bonita Sweeney MD [address] [place] [address] 06/20/2025 2:00 PM EDT Office Visit [address] [place] [address] Naga Luis MD, MS [address] [address] Marlee Meraz CCC-ROTARY HELPER 8 [place] [address] 06/27/2025 2:00 PM EDT Office Visit [address] [address] Naga Luis MD, MS [address] [address] Marlee Meraz CCC-ROTARY HELPER 8 [place] [address] 07/04/2025 2:00 PM EST Office Visit [address] [address] Naga Luis MD, MS [address] [address] Marlee Meraz CCC-ROTARY HELPER 8 [place] [address] 07/11/2025 2:00 PM EST Office Visit [address] [place] [address] Naga Luis MD, MS [address] [address] Marlee Meraz CCC-ROTARY HELPER 8 [place] [address] 07/18/2025 2:00 PM EST Office Visit [address] [address] Naga Luis MD, MS [address] [address] Marlee Meraz CCC-ROTARY HELPER 8 [place] [address] 07/26/2025 1:00 PM EST Office Visit [address] [address] Naga Luis MD, MS [address] [address] Marlee Meraz CCC-ROTARY HELPER [address] [place] [address] 08/01/2025 2:00 PM EST Office Visit [address] [address] Naga Luis MD, MS [address] [address] Marlee Meraz CCC-ROTARY HELPER 8 [place] [address] 08/08/2025 2:00 PM EST Office Visit [address] [place] [address] Naga Luis MD, MS [address] [address] Marlee Meraz CCC-ROTARY HELPER 8 [place] [address] [email or web address] 08/15/2025 2:00 PM EST Office Visit [facility] 8 [place] [address] Naga Luis MD, MS [address] [address] [email or web address] Marlee Meraz, [facility]-ROTARY HELPER 8 [place] [address] [email or web address] documented as of this encounter Visit Diagnoses Not on filedocumented in this encounter Additional Health Concerns Infection Onset Date Last Indicated Resolved Time CoV-Risk 08/29/2022 08/29/2022 09/09/2022 1:24 AM EST CoV-Risk 10/12/2023 10/12/2023 10/12/2023 6:15 PM EST COVID-19 10/12/2023 10/12/2023 11/02/2023 1:21 AM EST Assessment Noted Time PHQ-2 Depression Total Score: 0 12/25/19 4:05 PM EDT documented as of this encounter Care Teams Ditch Inspector Relationship Specialty Start Date End Date Bonita Sweeney MD [address] [place] [address] [email or web address] PCP - General Internal Medicine 04/05/22 02/15/23 Bonita Sweeney MD [address] [place] [address] [email or web address] PCP - General Internal Medicine 02/16/23 Scooter Gross MD [address] [place] [address] [email or web address] Historical LMR Provider 06/13/17 Gema Mari, RN [address] [place] [address] [email or web address] [facility] 09/10/22 10/07/22 Gema Mari RN [address] [place] [address] [email or web address] [facility] Project AdminArchitectural Job Captain 03/18/23 Jennie Brown [address] [place] [address] [email or web address] [facility] Community Crane Ladle Person 01/18/25 01/23/25 documented as of this encounter Additional Source Comments The information contained in this document represents components of the legal health record. It is not the complete legal health record.[facility]
--- OUTSIDE RECORDS SUMMARY | 2025-04-30 15:16 | XMS_ITS | Clinical Summary ---
Author Organization [facility] [place] [address] Care Team Providers Care Highway Patrol Pilot Name Role Phone Addy Vaughan MD Primary Care Provider Social History Tobacco Use Types Packs/Day Years Used Date Smoking Tobacco: Never Assessed Sex and Gender Information Value Date Recorded Sex Assigned at Not on file Legal Sex Male 7:19 AM EST Gender Identity Not on file Sexual Orientation Not on file Plan of Treatment Health Maintenance Due Date Last Done Comments Tetanus/Diphtheria/Pertussis Vaccines (1 - Tdap) 02/25 Pneumoccocal Vaccine: 50+ (1 of 1 - PCV) 02/26/1992 Zoster vaccine (1 of 2) 02/26/1992 Advance Directive 1997 RSV Vaccine (1 - 1-dose 75+ series) 2017 Covid-19 Vaccine (1 - season) 2025 Influenza (Flu) vaccine (1 o f 1 - Influenza standard series) 04/29/[address] Pilot Relationship Specialty Start Date End Date Addy Vaughan MD [address] [place] [address] PCP - General 07/21/10
--- OUTSIDE RECORDS SUMMARY | 2025-04-30 15:16 | XMS_ITS | Clinical Summary ---
Author Organization [facility] Address [address] [address] Care Team Providers Care Lpc Name Role Phone Bonita Sweeney MD Primary Care Provider [phone] Social History Tobacco Use Types Packs/Day Years Used Date Smoking Tobacco: Never Assessed Sex and Gender Information Value Date Recorded Sex Assigned at Not on file Legal Sex Male 10:50 AM EDT Gender Identity Not on file Sexual Orientation Not on file Plan of Treatment Health Maintenance Due Date Last Done Comments Influenza Vaccine (#1) 2025 9, 05/30/2017, 07/27/2016, Additional history exists Pneumococcal Vaccine: 50+ Years Completed 07/06/2018, 05/30/2017 Hepatitis B Vaccine Aged Out No longe r eligible based on patient's age to complete this topic Insurance Medicare [facility] Care Teams Lpc Relationship Specialty Start Date End Date Bonita Sweeney MD [address] [place] [address], [address] [place] [address] PCP - General Internal Medicine 06/17/22
--- OUTSIDE RECORDS SUMMARY | 2025-04-30 15:16 | XMS_ITS | Encounter Summary ---
Author Organization [address] [address] Care Team Providers Care Lehr Tender Name Role Phone Pcp, No Primary Care Provider Scooter Macias MD Primary Care Provider [phone] Encounter Details Date Type Department Care Team (Late st Contact Info) Description 09/08/2018 Scanned Document [facility] Neurosurgery [facility] [address] [facility] [address] [place] [phone] Scooter Dudley MD [address] [place] [address] Social History Tobacco Use Types Packs/Day Years [...] on filedocumented in this encounter Care Teams Lehr Tender Relationship Specialty Start Date End Date Pcp, No PCP - General General Medicine 08/14/18 09/12/18 [place] [address] PCP - General 09/13/18 documented as of this encounter
--- OUTSIDE RECORDS SUMMARY | 2025-04-30 15:16 | XMS_ITS | Clinical Summary ---
Author Organization [facility] Address [address] [place] [address] Care Team Providers Care Chief Construction Inspector Name Role Phone Scooter Gross MD Primary Care Provider [phone] Allergies No known active allergies Medications ELIQUIS 5 MG tablet 6 08/24/2018 Active atorvastatin (LIPITOR) 40 MG tablet 6 08/30/2018 Active carvedilol (COREG) 12.5 MG tablet 3 06/26/2018 Active cyanocobalamin (VITAMIN B-12) 1000 MCG tablet Take 1,000 mcg by mouth. Active econazole nitrate (SPECTAZOLE) 1 % cream Apply topically. 01/25/2018 Active furosemide (LASIX) 40 MG tablet 3 07/10/2018 Active lamoTRIgine (LaMICtal) 100 MG tablet 3 08/30/2018 Active lisinopril (PRINIVIL,ZeSTRI L) 20 MG tablet 3 07/25/2018 Act randy nystatin (MYCOSTATIN, NYSTOP) 926668 UNIT/GM powder 1 06/06/2018 Acti ve nystatin (MYCOSTATIN) 561761 UNIT/GM cream 1 06/06/2018 Active tamsulosin (FLOMAX) 0.4 MG capsule 0 07/25/2018 Active Active Problems Problem Noted Date Diagnosed Date Seizure 09/13/2018 Acute midline low back pain without sciatica Spondylolisthesis, grade 1 09/13/2018 Social History Tobacco Use Types Packs/Day Years [...] on file Sexual Orientation Not on file Last Filed Vital Signs Vital Sign Reading Time Taken Comments Blood Pressure - - Pulse 83 09/13/2018 12:05 PM EST Temperature 36.7 C (98 F) 09/13/2018 12:05 PM EST Respiratory Rate - - Oxygen Saturation - - Inhaled Oxygen Concentration - - Weight 118 kg (260 lb) 09/13/2018 12:05 PM EST Height 170.2 cm (5' 7 ) 09/13/2018 12:05 PM EST Body Mass Index 40.72 09/13/2018 12:05 PM EST Plan of Treatment Health Maintenance Due Date Last Done Comments Advance Care Planning 1942 DTaP/Tdap/Td Vaccines (1 - Tdap) 1961 Pneumococcal Vaccines 50+ (1 of 1 - PCV) 02/26/1992 Zoster (Shingles) Vaccine (1 of 2) 02/26/1992 RSV Vaccine 60 years and old er and Patients (1 - 1-dose 75+ series) 2017 COVID-19 Vaccine ( - 2023-2 5 season) 2024 Influenza Vaccine 03/29/2025 Hepatitis B Vaccines Aged Out No long er eligible based on patient's age to complete this topic Insurance MEDICARE PART A & B [facility] [address] Care Teams Chief Construction Inspector Relationship Specialty Start Date End Date Scooter Gross MD [facility] [address] PCP - General 09/13/18
--- OUTSIDE RECORDS SUMMARY | 2025-04-30 15:16 | XMS_ITS | Encounter Summary ---
Author Organization [facility] Address [address] [place] [address] Phone Care Team Providers Care Car Dispatcher Name Role Phone Chaitanya Williamson MD Unavailable + Adi Tim MD Unavailable Antonio Travis MD Unavailable Scooter Gross MD Unavailable Theron Lee MD Unavailable Wayne Miles MD Unavailable [phone] Paul Lake MD Unavailable Flavio Travis MD Unavailable Dari Javier MD Primary Care Provider [email or web address] Bonita Sweeney MD Primary Care Provider Gema Mari RN Unavailable Bonita Sweeney MD Primary Care Provider [phone] Gema Mari RN Unavailable Jennie Brown Unavailable yu Encounter Details Date Type Department Care Team (Late st Contact Info) Description 06/23/2021 Procedure Pass [facility], Ct Scan - [address] [address] Social History Tobacco Use Types Packs/Day Years [...] Date of Assessment Author No Risk Indicated 06/23/2021 11:46 AM Kandy Kwong RN * [place] Suicide Severity Rating Scale (Screener/Recent Self-Report) Question Answer Date of Assessment Author 1. Wish to be (Past 1 Month) No 021 11:46 AM Kandy Kwong, RN 2. Non-Specific Active Suici melonie Thoughts (Past 1 Month) No 06/23/2021 11:46 AM EDT Neipp, Kandy B, RN 6. Suicidal Behavior (Lifetime) No 11:46 AM EDT Kandy Romo, RN documented as of this encounter Plan of Treatment Upcoming Encounters Date Type Department Care Team (Late st Contact Info) Description 05/14/2025 1:40 PM EDT Office Visit [facility] [address] [place] [address] 3rd [facility], [address] [place] [address] Wilton Deluca MD [address] [address] 05/23/2025 4:00 PM EDT Office Visit [address] [address] Naga Luis MD, MS [address] [address] Marlee Meraz CCC-SHIPS EQUIPMENT ENGINEER 8 [place] [address] 05/29/2025 1:30 PM EDT Office Visit [facility] Pulmonary, Allergy and Critical Care Medicine [address] [place] [address] Naga Luis MD, MS [address] [address] 05/30/2025 4:00 PM EDT Office Visit [facility] [address] [place] [address] Naga Luis MD, MS [address] [address] Marlee Meraz CCC-SHIPS EQUIPMENT ENGINEER 8 [place] [address] 06/06/2025 4:00 PM EDT Office Visit [facility] [address] [place] [address] Naga Luis MD, MS [address] [address] Marlee Meraz CCC-SHIPS EQUIPMENT ENGINEER 8 [place] [address] 06/13/2025 4:00 PM EDT Office Visit [facility] [address] [place] [address] Naga Luis MD, MS [address] [address] Marlee Meraz CCC-SHIPS EQUIPMENT ENGINEER 8 [place] [address] 06/14/2025 10:00 AM EDT Office Visit [facility] [address] [place] [address] Bonita Sweeney MD [address] [place] [address] 06/20/2025 2:00 PM EDT Office Visit [facility] [address] [place] [address] Naga Luis MD, MS [address] [address] Marlee Meraz CCC-SHIPS EQUIPMENT ENGINEER 8 [place] [address] 06/27/2025 2:00 PM EDT Office Visit [facility] [address] [place] [address] Naga Luis MD, MS [address] [address] [email or web address] Marlee Meraz CCC-SHIPS EQUIPMENT ENGINEER [address] [place] [address] 07/04/2025 2:00 PM EST Office Visit [address] [place] [address] Naga Luis MD, MS [address] [address] [email or web address] Marlee Meraz CCC-SHIPS EQUIPMENT ENGINEER [address] [place] [address] 07/11/2025 2:00 PM EST Office Visit [address] [place] [address] Naga Luis MD, MS [address] [address] [email or web address] Marlee Meraz CCC-SHIPS EQUIPMENT ENGINEER [address] [place] [address] 07/18/2025 2:00 PM EST Office Visit [address] [place] [address] Naga Lusi MD, MS [address] [address] [email or web address] Marlee Meraz CCC-SHIPS EQUIPMENT ENGINEER [address] [place] [address] 07/26/2025 1:00 PM EST Office Visit [address] [place] [address] Naga Luis MD, MS [address] [address] [email or web address] Marlee Meraz CCC-SHIPS EQUIPMENT ENGINEER [address] [place] [address] 08/01/2025 2:00 PM EST Office Visit [address] [address] Naga Luis MD, MS [address] [address] [email or web address] Marlee Meraz CCC-SHIPS EQUIPMENT ENGINEER [address] [place] [address] 08/08/2025 2:00 PM EST Office Visit [address] [address] Naga Luis MD, MS [address] [address] Marlee Meraz CCC-SHIPS EQUIPMENT ENGINEER [address] [place] [address] 08/15/2025 2:00 PM EST Office Visit [address] [address] Naga Luis MD, MS [address] [address] Marlee Meraz CCC-SHIPS EQUIPMENT ENGINEER [address] [place] [address] documented as of this encounter Visit Diagnoses [...] documented as of this encounter Care Teams Car Dispatcher Relationship Specialty Start Date End Date Dari Javier MD [email or web address] PCP - General Family Medicine 08/12/20 04/04/22 Bonita Sweeney MD [address] [place] [address] [email or web address] PCP - General Internal Medicine 04/05/22 02/15/23 Bonita Sweeney MD [address] [place] [address] [email or web address] PCP - General Internal Medicine 02/16/23 Chaitanya Williamson MD [address] [place] [address] [email or web address] Historical LMR Provider 06/13/17 09/05/21 Adi Tim MD [address] [place] [address] Historical LMR Provider 06/13/17 Antonio Travis MD [address] [place] [phone] [email or web address] Historical LMR Provider 06/13/17 09/05/21 Scooter Gross MD [address] [place], [place] [address], [place] [address] [email or web address] Historical LMR Provider 06/13/17 Theron Lee MD [address] [facility] [address] [place] [address] [email or web address] Historical LMR Provider 06/13/17 09/05/21 Wayne Miles MD 30 [place] [address] Historical LMR Provider 06/13/17 2 Paul Lake MD [address] [place] [address] 7 [place] [address] Historical LMR Provider 06/13/17 2 Flavio Travis MD [address] [facility] [address] [place] [phone] [email or web address] Historical LMR Provider 06/13/17 09/05/21 Gema Mari RN [address] [place] [phone] [email or web address] iC[employer] Guide Foreign Tour 09/10/22 10/07/22 Gema Mari RN [address] [place] [address] [email or web address] iCMP Guide Foreign TourHopper Operator 03/18/23 Jennie Brown [address] [place] [address] [email or web address] Community Shipping And Receiving Operator 01/18/25 01/23/25 documented as of this encounter Additional Source Comments The information contained in this document represents components of the legal health record. It is not the complete legal health record.[facility]
--- OUTSIDE RECORDS SUMMARY | 2025-04-30 15:16 | XMS_ITS | Encounter Summary ---
Author Organization [facility] Address [address] [place] [address] Phone Care Team Providers Care Track And Field Coach Name Role Phone Scooter Gross MD Unavailable [phone] Bonita Sweeney A Primary Care Provider [phone] Bonita Sweeney A Primary Care Provider [phone] Gema Mari RN Unavailable [phone] Jennie Brown Unavailable yu Encounter Details Date Type Department Care Team (Late st Contact Info) Description 01/14/2023 Procedure Pass [facility] [place] [address] [place] [id number] Social History Tobacco Use Types Packs/Day Years [...] Upcoming Encounters Date Type Department Care Team ([facility] st Contact Info) Description 05/14/2025 1:40 PM EDT Office Visit [facility] [address] [place] [address], [address] [address] Wilton Deluca MD [address] [place] [address] 05/23/2025 4:00 PM EDT Office Visit [facility] 8 [place] [address] Naga Luis MD, MS [address] [address] Marlee Meraz, [facility]-RELAY TECHNICIAN 8 [place] [address] 05/29/2025 1:30 PM EDT Office Visit [facility] Pulmonary, Allergy and Critical Care Medicine 10 [place] [address] Naga Luis MD, MS [address] [address] 05/30/2025 4:00 PM EDT Office Visit [address] [place] [address] Naga Luis MD, MS [address] [address] Marlee Meraz CCC-RELAY TECHNICIAN 8 [place] [address] 06/06/2025 4:00 PM EDT Office Visit [address] [address] Naga Luis MD, MS [address] [address] Marlee Meraz CCC-RELAY TECHNICIAN [address] [place] [address] 06/13/2025 4:00 PM EDT Office Visit [address] [address] Naga Luis MD, MS [address] [address] Marlee Meraz CCC-RELAY TECHNICIAN 8 [place] [address] 06/14/2025 10:00 AM EDT Office Visit [facility] [address] [place] [address] [place] [address] Bonita Sweeney MD [address] [place] [address] 06/20/2025 2:00 PM EDT Office Visit [facility] [address] [place] [address] Naga Luis MD, MS [address] [address] Marlee Meraz CCC-RELAY TECHNICIAN 8 [place] [address] 06/27/2025 2:00 PM EDT Office Visit [address] [address] Naga Luis MD, MS [address] [address] Marlee Meraz CCC-RELAY TECHNICIAN [address] [place] [address] 07/04/2025 2:00 PM EST Office Visit [address] [address] Naga Luis MD, MS [address] [address] Marlee Meraz CCC-RELAY TECHNICIAN 8 [place] [address] 07/11/2025 2:00 PM EST Office Visit [address] [address] Naga Luis MD, MS [address] [address] Marlee Meraz CCC-RELAY TECHNICIAN 8 [place] [address] 07/18/2025 2:00 PM EST Office Visit [address] [address] Naga Luis MD, MS [address] [address] Marlee Meraz CCC-RELAY TECHNICIAN 8 [place] [address] 07/26/2025 1:00 PM EST Office Visit [address] [address] Naga Luis MD, MS [address] [address] Marlee Meraz CCC-RELAY TECHNICIAN [address] [place] [address] 08/01/2025 2:00 PM EST Office Visit [address] [address] Naga Luis MD, MS [address] [address] Marlee Meraz CCC-RELAY TECHNICIAN 8 [place] [address] 08/08/2025 2:00 PM EST Office Visit [address] [address] Naga Luis MD, MS [address] [address] Marlee Meraz CCC-RELAY TECHNICIAN 8 [place] [address] 08/15/2025 2:00 PM EST Office Visit [facility] 8 [place] [address] Naga Luis MD, MS [address] [phone] [email or web address] Marlee Meraz, [facility] TECHNICIAN 8 [place] [address] [email or web address] documented as of this encounter Visit Diagnoses Not on filedocumented in this encounter Additional Health Concerns Infection Onset Date Last Indicated Resolved Time CoV-Risk 10/12/2023 10/12/2023 10/12/2023 6:15 PM EST COVID-19 10/12/2023 10/12/2023 11/02/2023 1:21 AM EST Assessment Noted Time PHQ-2 Depression Total Score: 0 04/22/20 3:13 PM EDT documented as of this encounter Care Teams Track And Field Coach Relationship Specialty Start Date End Date Bonita Sweeney MD [address] [place] [address] [email or web address] PCP - General Internal Medicine 04/05/22 02/15/23 Bonita Sweeney MD [address] [place] [address] [email or web address] PCP - General Internal Medicine 02/16/23 Scooter Gross MD [address] [place] [address] [email or web address] Historical LMR Provider 06/13/17 Gema Mari, RN [address] [place] [address] [email or web address] iCMP Riveting Machine Operator Tape ControlSupervisor Mechanic Boilermaking 03/18/23 Jennie Brown [address] [place] [address] [email or web address] iCMP [place] Expert 01/18/25 01/23/25 documented as of this encounter Additional Source Comments The information contained in this document represents components of the legal health record. It is not the complete legal health record.[facility]
--- OUTSIDE RECORDS SUMMARY | 2025-04-30 15:16 | XMS_ITS | Clinical Summary ---
Author Organization [facility] Address [address] [place] [address] Phone Care Team Providers Care Human Resource Consultant Name Role Phone Scooter Gross MD Unavailable [phone] Bonita Sweeney MD Primary Care Provider [phone] Gema Mari RN Unavailable Allergies No known active allergies Medications bisacodyl (DULCOLAX) 5 mg EC tablet Take 5 mg by mouth daily as needed for constipation. Active meclizine (ANTIVERT) 25 mg tablet Take 1 tablet (25 mg total) by mouth 3 (three) times a day as needed for dizziness. 20 tablet 3 Active lidocaine (LIDODERM) 5 % Place 1 patch onto the skin as needed. Remove & Discard patch within 12 hours or as directed by Active finasteride (PROSCAR) 5 mg tablet TAKE 1 TABLET BY MOUTH DAILY 90 tablet 3 3 Active Additional Information Patient not taking.Reported on 02/19/2025 cyanocobalamin, vitamin B-12, 100 MCG tablet Take 100 mcg by mouth daily. Active ketoconazole 2 % cream APPLY A THIN LAYER TO THE RASH UNDER BREASTS TWO TIMES A DAY UNTIL RESOLVED AND REPEAT NEEDED 4 Active potassium chloride (KLOR-CON) 10 MEQ ER tabletIndication s:Hypokalemia TAKE TWO TABLETS BY MOUTH TWICE A DAY 360 tablet 3 5 Active metoprolol succinate (TOPROL-XL) 50 MG 24 hr tabletIndication s:Essential hypertension TAKE ONE AND ONE-HALF TABLETS BY MOUTH EVERY DAY 135 tablet 3 5 Active atorvastatin (LIPITOR) 40 MG tabletIndication s:Medication refill TAKE ONE TABLET BY MOUTH EVERY DAY 90 tablet 3 5 Active omeprazole (PRILOSEC) 20 MG capsuleIndicatio ns:Gastroesophag eal reflux disease without esophagitis Take 1 capsule (20 mg total) by mouth daily. 60 capsule 2 5 Active furosemide (LASIX) 40 MG tablet 60mg of lasix in the AM and 40mg of lasix in the afternoon. 225 tablet 3 5 Active valsartan (DIOVAN) 80 MG tablet TAKE ONE TABLET BY MOUTH EVERY DAY 90 tablet 3 5 Active tamsulosin (FLOMAX) 0.4 mg CapIndications:B enign prostatic hyperplasia with nocturia TAKE ONE CAPSULE BY MOUTH EVERY DAY 90 capsule 3 5 Active lamoTRIgine (LAMICTAL) 100 MG IMMEDIATE release tabletIndication s:Medication refill TAKE ONE TABLET BY MOUTH THREE TIMES A DAY 270 tablet 3 5 Active Active Problems Patient Care Coordination No te Formatting of this note migh t be different from the original. Patient is high risk for these reasons: Multiple chronic conditions Living Situation: [facility] Functional Status (ADL's/iADLs): Independent Family/Social Supports: Large network of family and friends Goals of Care (HCP/Molst): On File Community Supports (e.g. VNA, DME Vendors, Elder Services): N/A Transportation: Drives self Medication Management System/Specialized Pharmacy Needs: Local chart picker, self managed with pillbox Financial Concerns: No Concerns Other Supports and Care Needs: N/A Problem Noted Date Diagnosed Date Chronic kidney disease, stage 3b 02/07/2025 Chronic bilateral pleural effusions 07/26/2023 Assessment & Plan (07/26/2023 3:16 PM EST): These have been small to moderate in size based on review of imaging available to me today. Would monitor clinically for now and optimize volume status. Will reevaluate in his next visit whether repeat imaging and consideration of thoracentesis should be entertained. Pulmonary nodules 07/26/2023 Overview (07/26/2023): Some of which are granulomas, seen on chest CT 02/07/2023 ([facility] [place]). Former smoker 07/26/2023 Overview (07/26/2023): 1 to 1.5 pack per day for 25 years, quit in 1984. Parkinsons 04/22/2023 Cervicalgia 04/22/2023 Chronic cough 04/22/2023 Overview (12/06/2023): Resolved October/November 2023 since coming off JANA inhibitor. Assessment & Plan (12/07/2024 12:33 PM EDT): I continue suspect this is multifactorial. Spirometry was normal a few years ago when he has not smoked in 40 years, doubt underlying airways disease. He is no longer on an JANA inhibitor. ARB would be an unlikely cause of cough. Heart failure remains a possibility, advised to continue with diuretics and low- salt diet and follow-up with cardiology as scheduled. GERD remains a possibility, advised that he restart a twice daily PPI until his next visit here and monitor cough closely. He underwent upper endoscopy 08/25/2023 which revealed a small hiatal hernia and abnormal esophageal dysmotility. In this context, will also obtain a barium swallow. Will obtain a chest CT scan to rule out pulmonary parenchymal disease; his last CT performed just under 2 years ago revealed pleural effusions, will obtain images for comparison. Orders: CT Chest; Future FL Barium Swallow; Future Assessment & Plan (11/07/2024 1:57 PM EDT): Patient does report ongoing productive cough. He reports he did follow-up with PCP a few months ago regarding this productive cough. He reports he did follow-up with the sausage canner in [place]. He is requesting to see Dr. Kinney here in the office. I do not think this productive cough is due to to his heart failure. As he is euvolemic on exam today weight is down lungs are clear on exam. I have advised patient to follow up with sausage canner as that was the original plan. Assessment & Plan (12/06/2023 2:41 PM EDT): This has resolved since coming off his AJNA inhibitor. Assessment & Plan (07/26/2023 3:17 PM EST): Etiology for this is unclear. He is a former smoker, but quit 40 years ago and spirometry is normal, therefore I am not convinced inhalers would be helpful. The intermittent nature of his cough and associated sputum production along with previous history of reflux and esophagitis makes me wonder about GERD. Has he is scheduled for upper endoscopy with GI later this month, will defer to the expertise prior to initiate PPI therapy. I do note he is on an JANA inhibitor and would consider switching him over to an ARB if can safely be done; will defer to cardiology and PCP. Gastroesophageal reflux disease without esophagi tis 01/03/2022 Assessment & Plan (12/07/2024 12:33 PM EDT): Trial of twice daily PPI. We will reconvene in 6 to 8 weeks. Orders: omeprazole (PRILOSEC) 20 MG capsule; Take 1 capsule (20 mg total) by mouth daily. Assessment & Plan (12/06/2023 2:42 PM EDT): Defer further evaluation and management to GI. Assessment & Plan (07/26/2023 3:18 PM EST): I suspect this is a significant contributor to his cough. I thought about prescribing a PPI empirically today, however he is undergoing upper endoscopy in 1 month and therefore will defer further evaluation and management to GI at this time. Assessment & Plan (01/03/2022 4:55 PM EDT): Scheduled this summer for endoscopy and colonoscopy with Kalyani Alvarado Ascending aortic aneurysm 12/01/2021 Assessment & Plan (07/12/2022 2:17 PM EST): He recently had aneurysm repair on June 04 at [facility]. He is doing very well postoperatively. Assessment & Plan (12/01/2021 2:52 PM EDT): Ascending aorta dilated at 5.1 cm, as described on echo above. His blood pressure is well controlled. He does not smoke. Reviewed with Dr Deluca, will refer to Dr Roberts ([facility]). Gross hematuria 06/23/2021 Assessment & Plan (06/23/2021 8:41 PM EDT): New onset , may be related to stone seen on the Rt? Vs. More concerning etiology Will require uro work up who is aware and to be seen tomorrow. -urine cytology sent -Eliquis held starting 10 AM Urinary retention 06/23/2021 Assessment & Plan (06/23/2021 8:45 PM EDT): Unknown duration but most likely chronic due to lack of any urinary symptomatology or HOA (denies urgency, frequency, fullness, spasm etc) in spite of 3L output at mera placement. -PSA pending -Uro Consult pending -US pending -bladder decompressed with Mera starting at 8pm on 06/23 -repeat lytes at 12am as at risk for post obstructive diuresis Other dysphagia 03/25/2021 Presbycusis of both ears 12/19/2020 Epilepsy 12/19/2020 Redundant colon 12/19/2020 Overview (12/19/2020): [facility], Dr. Alvarado Assessment & Plan (12/19/2020 5:28 PM EDT): BM pattern seems stable, with no continence issues or abdominal pain Encouraged him to continue with the plan as discussed with GI Monitor Chronic heart failure with preserved ejection fr action 09/06/2019 Assessment & Plan (11/07/2024 1:58 PM EDT): Patient appears to be euvolemic on exam today. Weight is down at 105.2 kg. Patient reports shortness of breath orthopnea belly bloating and lower extremity edema has significantly improved and he feels as if he is back to his baseline. He has been taking Lasix 60 mg in the morning and Lasix 40 mg in the p.m. I have encouraged patient to continue taking this maintenance dose. I have asked patient to get an updated BMP within the next week or 2 to recheck creatinine level. Educated patient on daily weights. Advised If a weight gain of more than 3 pounds in a day or 5 pounds in a week call the office. Assessment & Plan (10/23/2024 4:30 PM EST): Patient appears to be hypervolemic on exam today. Patient reports he has gained about 10 pounds over the past month. He is reporting orthopnea, bendopnea lower extremity edema, belly bloating and continuous shortness of breath on exertion. Most recent echo done on 06/2024 conclusion-extremely difficult echocardiogram with patient unable to lie on back or side imaging very suboptimal. I will be reaching out to Dr. Enamorado to see if he would like to repeat this echo. At this time I am going to increase patient's Lasix. I have educated patient for the next 3 days he will be taking 100 mg Lasix in the morning and an additional 100 mg of Lasix by 2 PM. I have ordered an updated BMP and NT proBNP. I have educated patient by tomorrow afternoon he should be feeling some improvement with his symptoms. Educated patient on daily weights. Advised If a weight gain of more than 3 pounds in a day or 5 pounds in a week call the office. I have also educated patient that he should see his daily weights go down. I have asked patient to follow-up with me in 2 weeks so I can assess his fluid volume. I have also educated patient on taking blood pressure measurements over the next few days. I have also educated patient on slowly rising from a seated position as Lasix can bring your blood pressure down. I have asked patient if he does become dizzy on this Lasix dose to call the office. Assessment & Plan (07/26/2023 3:14 PM EST): The presence of pleural effusions and lower extremity edema makes me wonder about his fluid status and whether he may not be somewhat volume overloaded. He is scheduled for echocardiogram and follow-up with cardiology later this month. Will defer further evaluation and management to Dr. Deluca's expertise. Assessment & Plan (08/16/2022 11:44 AM EST): The patient was seen at [facility] for heart failure. For now, he will continue to take his furosemide 20 mg twice daily. He will also take his potassium as prescribed. He will have labs done later this week. We will follow-up in 2 weeks. Assessment & Plan (07/12/2022 2:17 PM EST): He has some lower extremity edema. His lungs are clear and he is not reporting any shortness of breath. I did start him on 20 mg of furosemide to be taken once daily for his lower extremity edema. We will follow-up in a few weeks. Assessment & Plan (10/09/2021 2:29 PM EST): Euvolemic on exam today. Continue Lasix at current dose. We will recheck an echo prior to next follow up visit with Dr Deluca, as he had mild dilation of ascending aorta and aortic root in 2019. This does not need to be done prior to his TURP. Benign prostatic hyperplasia with nocturia 07/06 Assessment & Plan (07/06/2018 10:42 AM EST): fllomax working well Right knee pain 07/06/2018 Assessment & Plan (07/08/2018 11:43 AM EST): Osteoarthritis w periodic steroid shots Dr Tim Last 12/20/2017 Polyp of colon 07/06/2018 Assessment & Plan (07/08/2018 11:42 AM EST): Adenomatous Polyp in 04/2018 Dr Alvarado question neri 3 yrs Near syncope 03/28/2018 Assessment & Plan (11/07/2024 1:53 PM EDT): Patient's blood pressure today 122/60. Patient reports he routinely checks his blood pressure at home and its usually around 120/70. Patient educated on HTN pathophysiology, htn medication, importance of low salt DASH heart healthy diet, exercise and home B/P monitoring. Patient will continue on valsartan 80 mg daily. Patient had reported episodes of dizziness when he switched to valsartan in August. Patient has not had any more episodes of dizziness Assessment & Plan (10/23/2024 4:32 PM EST): Patient's blood pressure today 114/58. Patient reports he routinely checks his blood pressure at home and its usually around 116/70. Patient educated on HTN pathophysiology, htn medication, importance of low salt DASH heart healthy diet, exercise and home B/P monitoring. Patient will continue on valsartan 80 mg daily. Patient had reported episodes of dizziness when he switched to valsartan in August. Patient has not had any more episodes of dizziness. Assessment & Plan (12/06/2023 2:41 PM EDT): He is now on valsartan, off JANA inhibitor, with resolution of his chronic cough. Advised BP monitoring with PCP and cardiology. Assessment & Plan (07/26/2023 3:15 PM EST): Will defer management to PCP and cardiology, however given cough and the fact he is on an JANA inhibitor, would consider switching that over to an ARB if can safely be done (though I do not believe the JANA inhibitor is primarily contributing to his cough given associated sputum production). Assessment & Plan (08/16/2022 11:44 AM EST): Continue current meds. Assessment & Plan (07/12/2022 2:18 PM EST): Today, his blood pressure is elevated as is his ventricular response. I suggested that he increase his metoprolol to 25 mg twice daily. He will continue his current dose of lisinopril. We will follow-up in 3 weeks to reassess his blood pressure. In the meantime, I have suggested that he stop taking his midodrine completely. Assessment & Plan (10/09/2021 2:27 PM EST): BP well controlled on current doses of carvedilol and lisinopril. Continue without change. Peripheral venous insufficiency 02/27/2018 Assessment & Plan (07/06/2018 10:42 AM EST): Improved w wgt loss and lasix Still L>R andappears L bakers cyst on exam tho knee not as sxatic Assessment & Plan (03/05/2018 4:21 PM EDT): Probably in part from weight venous insufficiency and also A. fib ansd rec a trial of Lasix And wgt loss /will check a renal panel after to ensure is not getting hypokalemic or prerenal Pain of both shoulder joints 02/27/2018 Assessment & Plan (03/05/2018 4:20 PM EDT): No Sign of PMR nor arthritis in the shoulders could be anginal equivalent await cardiology input Chronic atrial fibrillation 02/27/2018 Assessment & Plan (11/07/2024 1:53 PM EDT): Heart rate irregular on exam today rate controlled at 70 bpm. Patient is status post LAAL. Patient does not have any concerning symptoms for his atrial fibrillation at this time. Patient will continue on metoprolol succinate 75 mg daily. Assessment & Plan (10/23/2024 4:31 PM EST): Heart rate irregular on exam today rate controlled at 70 bpm. Patient is status post LAAL. Patient does not have any concerning symptoms for his atrial fibrillation at this time. Patient will continue on metoprolol succinate 75 mg daily. Assessment & Plan (08/16/2022 11:44 AM EST): Continue Eliquis. Assessment & Plan (07/12/2022 2:17 PM EST): He has atrial fibrillation chronically. He will continue with his Eliquis. Will increase his metoprolol for improved rate control. Assessment & Plan (12/01/2021 4:46 PM EDT): Asymptomatic, appropriately rate controlled with carvedilol. Prior to his episode of hematuria in May, patient had tolerated Eliquis without significant bleeding episodes (aside from one episode of epistaxis). We will resume 5 mg Eliquis BID and monitor for recurrent bleeding- in which case we will pursue Watchman device. Assessment & Plan (10/09/2021 2:27 PM EST): Rate controlled, asymptomatic. He is not taking Eliquis currently due to hematuria. Awaiting TURP and urology follow up thereafter- if resuming anticoagulation is not recommended due to hematuria or other complication, he will be scheduled for a Watchman procedure. He is motivated to do whatever he needs to do to lower his stroke risk, as his recently suffered a stroke and continues to have a fairly slow recovery. In the meantime, continue carvedilol. Assessment & Plan (06/23/2021 8:46 PM EDT): Holding anticoagulation due to risk of continued bleeding Will need to restart when Urology feels safe to do so ( just had a stroke, prevention at forefront for him) Assessment & Plan (10/18/2018 1:01 PM EST): Sees cards 01/2019 btu bp on low side wo dizziness or sob and may need decr dose coreg or JANA Assessment & Plan (10/08/2018 9:13 PM EST): Doing well on eliquis Assessment & Plan (07/08/2018 11:42 AM EST): Doing well sees Dr. Bangura in a regular basis on Eliquis without any symptoms of embolization nor congestive failure Assessment & Plan (03/05/2018 4:20 PM EDT): With michel ewhatchronic A. fib question how long on Eliquis and a beta-josep probably responsible part some of the shortness of breath. With the normal left atrial size by echo feel patient probably warranted to at least try a cardioversion. Patient wants a different referral to Dr. Rosales and discuss w cardiology about it. Will check TSH but doubt this is hyperthyroid in this patient as he has had weight gain. Son Guille had a excellent response to his A. fib with the at [facility] with a new type of cardiac ablation Spinal stenosis 12/01/2017 Overview (12/19/2020): With chronic back pain, limited walking distance due to pain MRI 08/2018 1. Minimal retrolisthesis of L2 and L3 new since 01/05/2018. 2. Stable grade 1 anterolisthesis of L4. 3. Chronic multilevel foraminal stenosis but no high-grade central stenosis. Assessment & Plan (12/19/2020 5:27 PM EDT): Patient is not interested in pursuing surgical interventions at this time Encouraged him to continue with supportive measures, activity modifications Continue to monitor Assessment & Plan (08/02/2018 9:46 PM EST): Pt with worsening lower back pain may be into his buttocks worse on standing and and and walking w 2 bouts of PT wo help. Seen in the past with spinal stenosis requesting an MRI as he wants to see a specialist Dr. Scooter Dudley at [facility] office #[phone] seen 4 yrs ago for neurogenic claudication but requires MRI first Assessment & Plan (01/09/2018 7:25 AM EDT): sds like spinal stenosis and rec ck pl films first then MRI/ physiatry declines narcs or rosalva Reviewed exercise and rec wgt loss Resolved Problems Problem Noted Date Diagnosed Date Resolved Date On angiotensin-converting en zyme (JANA) inhibitors 07/26/2023 12/06/2023 Hypokalemia 06/23/2021 08/10/2021 Assessment & Plan (06/23/2021 8:45 PM EDT): liekly related to chronic lasix use Replete 40 now and 40 at 12am Recheck in AM Annual physical exam 07/06/201816/ 020 Assessment & Plan (07/06/2018 10:43 AM EST): Declined Td booster but to get PN23 and had flu no depression but stressed as planning downsizing to smaller house but a lot stuff to rid Encounters Date Type Department Care Team Description 04/17/2025 Patient Outreach [facility] [address] [place] [address] [phone] Gema Mari, RN Care Coordination 03/29/2025 11:10 AM EDT - 03/29/2025 11:59 PM EDT Hospital Encounter [facility] [address] [place] [address] [place] [address] Erick Mar PA-C Discharge Disposition: Home or Self Care 03/29/2025 Transcribe Orders [facility] [address] [place] [address] [place] [address] Erick Mar PA-C Atony of bladder (Primary Dx) 03/15/2025 10:35 AM EDT - 03/15/2025 11:59 PM EDT Hospital Encounter [facility] - [address] [address] Erick Mar PA-C Discharge Disposition: Home or Self Care 03/07/2025 Patient Outreach [facility] [address] [place] [phone] Gema Mari, RN Care Coordination ([facility]) 02/26/2025 Transcribe Orders Virtual Department [address] [place] [id number] Erick Mar PA-C Flaccid neurogenic bladder (Primary Dx); Benign prostatic hyperplasia with lower urinary tract symptoms, symptom details unspecified 02/19/2025 11:40 AM EDT Office Visit [facility] [address] [place] [address] Mu Marsh MD Cervical facet joint syndrome (Primary Dx) 02/12/2025 1:15 PM EDT - 02/12/2025 11:59 PM EDT Hospital Encounter [facility], X-Ray - [address] [place] [address] Bonita Sweeney MD Discharge Disposition: Home or Self Care 02/12/2025 1:02 PM EDT - 02/12/2025 1:14 PM EDT Hospital Encounter [facility] [address] [place] [address] [place] [address] Bonita Sweeney MD Discharge Disposition: Home or Self Care 02/07/2025 11:15 AM EDT Office Visit [facility] [address] [place] [address] Dr [place]udd, [place] [address] Bonita Sweeney MD Benign essential hypertension (Primary Dx); Chronic kidney disease, stage 3b; Chronic atrial fibrillation; Chronic heart failure with preserved ejection fraction; Pure hypercholesterolemia ; Cervicalgia 02/01/2025 Telephone [facility] [address] [place] [address] Naga Luis MD, MS 01/30/2025 Telephone [facility] [address] [place] [address] Hoda Rivera therapy from Last 3 Months Immunizations Immunization Administration Dates Next Due COVID-19 (Pre-06/20) Pfizer Vaccine, mRNA, PF 05/30/2021,10/24/2020,10/03/2020 Influenza High-Dose Quadriva lent Preservative Free IM 07/17/2022,08/10/2021,06/13/2020 Influenza High-Dose Trivalen t Preservative Free IM 06/05/2024,06/12/2019,05/30/2017,07/27,05/23/2014,05/28/2013 Influenza Nasal, Unspecified Formulation 05/15/2009 Influenza Quadrivalent Prese rvative Free Intradermal 05/23/2018 Pneumococcal conjugate PCV13 05/30/2017 Pneumococcal polysaccharide PPSV23 07/06/2018 Td (adult) 5 Lf Tetanus Toxo id, PF, Adsorbed 01/26/2007 Td (adult),2 Lf Tetanus Toxo id, PF, Adsorbed 03/30/2022 Td, unspecified formulation 01/26/2007 Zoster live 05/09/2013 Family History Medical History Relation Comments Lung disease Neg Hx Relation Status Comments Father Mother Social History Tobacco Use Types Packs/Day Years Used Date Smoking Tobacco: Former Cigarettes 0.5 25 1 960 - 1985 Smokeless Tobacco: Never Tobacco Cessation:Counseling Given: Not Answered Alcohol Use Standard Drinks/Week Comments Not Currently [...] Orientation Straight 10/23/2019 11 :56 AM EST Last Filed Vital Signs Vital Sign Reading Time Taken Comments Blood Pressure 115/66 02/19/2025 11:39 AM EDT Pulse 84 02/19/2025 11:39 AM EDT Temperature 36.4 C (97.5 F) 12/07/2024 11:55 AM EDT Respiratory Rate 16 05/14/2024 11:05 AM EDT Oxygen Saturation 97% 02/19/2025 11:39 AM EDT Inhaled Oxygen Concentration - - Weight 93.9 kg (207 lb) 02/19/2025 11:39 AM EDT Height 182.9 cm (6' 0.01 ) 02/19/2025 11:39 AM E DT Body Mass Index 28.07 02/19/2025 11:39 AM EDT Plan of Treatment Upcoming Encounters Date Type Department Care Team (Late st Contact Info) Description 05/14/2025 1:40 PM EDT Office Visit [facility] [address] [place] [address], [address] [address] Wilton Deluca MD [address] [place] [id number] 05/23/2025 4:00 PM EDT Office Visit [facility] [address] [place] [address] Naga Luis MD, MS [address] [address] Marlee Meraz, [facility] [address] [place] [address] 05/29/2025 1:30 PM EDT Office Visit [facility] Pulmonary, Allergy and Critical Care Medicine [address] [place] [address] Naga Luis MD, MS [address] [address] 05/30/2025 4:00 PM EDT Office Visit [facility] [address] [place] [address] Naga Luis MD, MS [address] [address] Marlee Meraz [facility] [address] [place] [address] 06/06/2025 4:00 PM EDT Office Visit [facility] [address] [place] [address] Naga Luis MD, MS [address] [address] Marlee Meraz [facility] [address] [place] [address] 06/13/2025 4:00 PM EDT Office Visit [facility] [address] [place] [address] Naga Luis MD, MS [address] [address] Marlee Meraz CCC-GRANITE BLOCK PAVER 8 [place] [address] 06/14/2025 10:00 AM EDT Office Visit [facility] [address] [place] [address] [place] [address] Bonita Sweeney MD [address] [place] [address] 06/20/2025 2:00 PM EDT Office Visit [facility] [address] [place] [address] Naga Luis MD, MS [address] [address] Marlee Meraz CCC-GRANITE BLOCK PAVER 8 [place] [address] 06/27/2025 2:00 PM EDT Office Visit [facility] 8 [place] [address] Naga Luis MD, MS [address] [address] Marlee Meraz CCC-GRANITE BLOCK PAVER [address] [place] [address] 07/04/2025 2:00 PM EST Office Visit [address] [address] Naga Luis MD, MS [address] [address] Marlee Meraz CCC-GRANITE BLOCK PAVER [address] [place] [address] 07/11/2025 2:00 PM EST Office Visit [address] [address] Naga Luis MD, MS [address] [address] Marlee Meraz CCC-GRANITE BLOCK PAVER [address] [place] [address] 07/18/2025 2:00 PM EST Office Visit [address] [address] Naga Luis MD, MS [address] [address] Marlee Meraz CCC-GRANITE BLOCK PAVER 8 [place] [address] 07/26/2025 1:00 PM EST Office Visit [address] [address] Naga Luis MD, MS [address] [address] Marlee Meraz CCC-GRANITE BLOCK PAVER [address] [place] [address] 08/01/2025 2:00 PM EST Office Visit [address] [address] Naga Luis MD, MS [address] [address] Marlee Meraz CCC-GRANITE BLOCK PAVER [address] [place] [address] 08/08/2025 2:00 PM EST Office Visit [address] [address] Naga Luis MD, MS [address] [address] Marlee Meraz CCC-GRANITE BLOCK PAVER [address] [place] [address] 08/15/2025 2:00 PM EST Office Visit [address] [address] Naga Luis MD, MS [address] [address] Marlee Meraz, [facility]-[employer] [employer] [address] [place] [address] Health Maintenance Due Date Last Done Comments ZOSTER VACCINES (2 of 3) 07/04/2013 05/09/2013 RSV VACCINE (1 - 1-dose 75+ series) 2017 INFLUENZA VACCINE (#1) 2025 , 07/17/2022, 08/10/2021, Additional history exists COVID-19 VACCINE ( season) 2025 05/07/2024, 01/13/2023, 05/14/2022, Additional history exists DEPRESSION SCREENING 06/05/2025 06/05/2024 BLOOD PRESSURE 08/21/2025 02/19/2025 CREATININE LEVEL 03/29/2026 03/29/2025, , 11/26/2024, Additional history exists POTASSIUM LEVEL 03/29/2026 03/29/2025, 11/27, 11/26/2024, Additional history exists Adult Td,Tdap Booster 03/30/2032 03/30/2022 , 01/26/2007, 01/26/2007 PNEUMOCOCCAL VACCINES (50+ years) Completed 07/06/2018, 05/30/2017 HEPATITIS A VACCINES Aged Out No long er eligible based on patient's age to complete this topic HIB VACCINES Aged Out No longer eligi ble based on patient's age to complete this topic MENINGOCOCCAL VACCINES (ACWY) Aged Out No longer eligible based on patient's age to complete this topic MENINGOCOCCAL VACCINES (B) Aged Out N o longer eligible based on patient's age to complete this topic Medical Devices Not on file Procedures Procedure Name Priority Date/Time Associated Diagnosis Comments BASIC METABOLIC PANEL Routine 03/29/2025 11:32 AM EDT Atony of bladder US KIDNEYS Routine 03/15/2025 2:07 PM EDT 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, symptom details unspecified XR CERVICAL SPINE 2-3 VIEWS Routine 02/12/2025 2:00 PM EDT Cervicalgia LIPID PANEL Routine 02/12/2025 1:10 PM EDT Pure hypercholesterolemia LAMOTRIGINE LEVEL Routine 02/12/2025 1:1 0 PM EDT Nonintractable epilepsy without status epilepticus, unspecified epilepsy type LFTS (HEPATIC PANEL) Routine 02/12/2025 1:10 PM EDT Pure hypercholesterolemia from Last 3 Months Results * (ABNORMAL) Basic metabolic panel (03/29/2025 11:32 AM EDT) SODIUM 140 133 - 146 mmol/L [facility] CHLORIDE 104 96 - 108 mmol/L [facility] POTASSIUM 4.5 3.3 - 5.1 mmol/L [facility] CO2 25 21 - 35 mmol/L [facility] BUN 36(H) 6 - 19 mg/dL [facility] CREATININE 1.90(H) 0.5 - 1.5 mg/dL [facility] GLUCOSE 142(H) 70 - 99 mg/dL [facility] CALCIUM 9.8 8.4 - 10.3 mg/dL [facility] EGFR 35(L) >59 mL/min/1.7 3m2 [facility] Comment:Estimated glomerular filtration rate calculated using the CKD-EPI refit equation. ANION GAP 16 10 - 20 mmol/L [facility] Blood 03/29/2025 11:3 2 AM EDT 03/29/2025 11:34 AM EDT us Erick Mar PA-C LAB BLOOD ORDERABLES Final Result [facility] [address] [place] [address] * US Kidneys (03/15/2025 2:07 PM EDT) MGB IMG RECOMMENDATION COMMENT wall thickening; thickening urinary bladder; thickening bladder wall; multiple bladder wall nodules [facility] Anatomical Region Laterality Modality Abdomen, Kidney Ultrasound 03/15/2025 2:16 PM EDT Impressions 03/15/2025 2:19 PM EDT 1. Increased chronic left-sided hydronephrosis. 2. There is wall thickening of the urinary bladder and multiple bladder wall nodules, for which correlation with cystoscopy is advised. Narrative 03/15/2025 2:19 PM EDT US KIDNEYS Referring clinician's provided indication for this examination in [facility]: Outside Radiology Order TECHNIQUE: Kidney Ultrasound. COMPARISON: 06/20/2024, 06/24/2021 FINDINGS: Right Kidney: Size: 12.1 cm No stones or hydronephrosis. There is an upper pole hypoechoic lesion measuring 2.3 x 1.4 x 1.3 cm Left Kidney: Size: 11.3 cm Chronic dilation of the left renal pelvis measuring 3.1 cm with diffuse cortical thinning. The renal pelvis measures 2.8 cm and 6.5 cm, increased when compared to immediate prior study Bladder: The right lower urinary bladder wall thickening with multiple nodular foci along the bladder wall. Procedure Note Aaliyah Lay MD - 03/15/2025 US KIDNEYS Referring clinician's provided indication for this examination in [facility]:Outside Radiology Order TECHNIQUE: Kidney Ultrasound. COMPARISON: 06/20/2024, 06/24/2021 FINDINGS: Right Kidney: Size: 12.1 cm No stones or hydronephrosis. There is an upper pole hypoechoic lesionmeasuring 2.3 x 1.4 x 1.3 cm Left Kidney: Size: 11.3 cm Chronic dilation of the left renal pelvis measuring 3.1 cm with diffusecortical thinning. The renal pelvis measures 2.8 cm and 6.5 cm, increasedwhen compared to immediate prior study Bladder: The right lower urinary bladder wall thickening with multiplenodular foci along the bladder wall. IMPRESSION: 1. Increased chronic left-sided hydronephrosis. 2. There is wall thickening of the urinary bladder and multiple bladderwall nodules, for which correlation with cystoscopy is advised. 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 Narrative 02/13/2025 2:42 PM EDT XR CERVICAL SPINE 2-3 VIEWS Referring clinician's provided indication for this examination in [facility]: Pain COMPARISON: CT CERVICAL SPINE WITHOUT CONTRAST FINDINGS: The C7 vertebral body is obscured by overlapping soft tissues on the lateral projection. Reversal of the normal cervical lordosis with grade 1 anterolisthesis of C2 on C3, C3 on C4, and C4 on C5. Mild retrolisthesis of C5 on C6. Cervical vertebral body heights are maintained. Severe superimposed degenerative changes with disc height loss, endplate osteophytes, facet arthropathy, and uncovertebral hypertrophy. No prevertebral soft tissue swelling. Vascular calcifications. Status post median sternotomy. Procedure Note Jairon May MD - 02/13/2025 XR CERVICAL SPINE 2-3 VIEWS Referring clinician's provided indication for this examination in Epic:Pain COMPARISON: CT CERVICAL SPINE WITHOUT CONTRAST FINDINGS: The C7 vertebral body is obscured by overlapping soft tissues on thelateral projection. Reversal of the normal cervical lordosis with grade 1anterolisthesis of C2 on C3, C3 on C4, and C4 on C5. Mild retrolisthesisof C5 on C6. Cervical vertebral body heights are maintained. Severesuperimposed degenerative changes with disc height loss, endplateosteophytes, facet arthropathy, and uncovertebral hypertrophy. Noprevertebral soft tissue swelling. Vascular calcifications. Status postmedian sternotomy. IMPRESSION: Severe degenerative changes of the cervical spine. us Bonita A Patel ROMERO IMG XR SPINE Final Result * (ABNORMAL) LFTs (hepatic panel) (02/12/2025 1:10 PM EDT) ALKALINE PHOSPHATASE 179(H) 39 - 117 U/L [facility] TOTAL BILIRUBIN 1.1 0.0 - 1.2 mg/dL [facility] DIRECT BILIRUBIN 0.5(H) 0.0 - 0.2 mg/dL [facility] Bilirubin (Indirect) 0.6 0 - 1.5 mg/dL [facility] AST 25 0 - 37 U/L [facility] ALT 22 0 - 40 U/L [facility] TOTAL PROTEIN 7.3 6.5 - 8.0 g/dL [facility] ALBUMIN 4.0 3.9 - 4.8 g/dL [facility] GLOBULIN 3.3 1 - 4.8 g/dL [facility] A/G Ratio 1.21 1.00 - 4.80 RATIO [facility] Blood 02/12/2025 1:10 PM EDT 02/12/2025 1:14 PM EDT us Bonita A Patel ROMERO LAB BLOOD ORDERABLES Final Re sult Performing Organization Address City/[facility]/ZIP Co de Phone Number [address] [address] * Lamotrigine level (02/12/2025 1:10 PM EDT) Pathologist [facility] LAMOTRIGINE 9.8 4.0 - 18.0 mcg/mL [facility] Comment:This test was develo ped and its performance characteristics determined by the [facility]. It has not been cleared or approved by the US Food and Drug Administration. This laboratory is certified under CLIA as qualified to perform high complexity clinical laboratory testing. Blood 02/12/2025 1:10 PM EDT 02/12/2025 1:14 PM EDT us Bonita A Patel ROMERO LAB BLOOD ORDERABLES Final Re sult Performing Organization Address City/[facility]/ZIP Co de Phone Number [address] [address] * (ABNORMAL) Lipid panel (02/12/2025 1:10 PM EDT) HDL 42 mg/dL [facility] Comment: Interpretation <40 mg/dL: Low HDL cholesterol (major risk factor for CHD) Greater than or equal to 60 mg/dL: High HDL cholesterol ( negative risk factor for CHD) HDL - cholesterol is affected by a number of factors, e.g. smoking, excerise, hormones, sex and age. CHOLESTEROL 115 0 - 240 mg/dL [facility] TRIGLYCERIDES 135 30 - 160 mg/dL [facility] LDL 46(L) 50 - 129 mg/dL [facility] Comment: LDL levels in terms of risk for coronary heart disease: <100 mg/dL: Optimal 100-129 mg/dL: Near or above optimal 130-159 mg/dL: Borderline high 160-189 mg/dL: High >190 mg/dL: Very High CARDIAC RISK RATIO 2.7(L) 3.4 - 5.0 C [facility] Blood 02/12/2025 1:10 PM EDT 02/12/2025 1:14 PM EDT us Bonita A Patel ROMERO LAB BLOOD ORDERABLES Final Re sult Performing Organization Address City/State/[facility] Co de Phone Number [facility] [address] [place] [address] from Last 3 Months Insurance , [address] [address] MEDICARE PART A & B [facility] [facility] , [address] [place] [phone] MEDICARE PART A & B [employer] , [address] [place] [address] MEDICARE PART A & B [employer]LE[employer] , [address] [place] [address] MEDICARE PART A & B MEDICARE SUPPLEMENT , [address] [place] [address] MEDICARE PART A & B MEDICARE SUPPLEMENT , [place] [id number] MEDICARE PART A & B MEDICARE SUPPLEMENT Vetiary [facility], [address] [place] [id number] MEDICARE PART A & B Member Subscriber Plan / Payer ( fective 2007-Present) Name:Theo Rodriges Member ID:[id number] Relation to Subscriber:Self Name:Theo Rodriges Subscriber ID:[id number] Payer ID:[id number] Group ID:Not on file Type:Medicare Address: [employer] [address] MEDICARE SUPPLEMENT , [address] [address] MEDICARE PART A & B MEDICARE SUPPLEMENT MEDICARE PART A & B [employer] Advance Directives For more information, please contact: [phone] (9AM - 5PM [facility], Tuesday-Tuesday) Documents on File Type Date Recorded Patient Plasterer Journeyman Expl anation POLST 02/13/2025 POLST Healthcare Proxy 07/11/2021 HCP signed 07/10/2021 * Full Code (Latest Code Status on File) Date Activated Date Inactivated Comments 06/23/2021 9:08 PM Question Answer Comments Code Status Confirmed With: PatientFamily Code Status Communicated To: Inpatient Attending Care Teams Human Resource Consultant Relationship Specialty Start Date End Date Bonita Sweeney MD [address] [place] [address], [address] [place] [address] [email or web address] PCP - General Internal Medicine 02/16/23 Scooter Gross MD [address] [place] [address] [address]r [facility] [place] [address] [email or web address] Historical LMR Provider 06/13/17 Gema Mari, RN [address] [place] [phone] [email or web address] Manager Talent ManagementMastic Floor Layer 03/18/23 Additional Source Comments The information contained in this document represents components of the legal health record. It is not the complete legal health record.[facility]
--- OUTSIDE RECORDS SUMMARY | 2025-04-30 15:16 | XMS_ITS | Encounter Summary ---
Author Organization [facility] Address [address] [place] [address] Phone Care Team Providers Care Dentofacial Orthopedics Dentist Name Role Phone Scooter Gross MD Unavailable [phone] Bonita Sweeney MD Primary Care Provider [phone] Gema Mari RN Unavailable [phone] Jennie Brown Unavailable yu Encounter Details Date Type Department Care Team (Late st Contact Info) Description 12/07/2024 Procedure Pass [facility], Ct Scan - [address] [address] Social History Tobacco Use Types Packs/Day Years [...] Description 05/14/2025 1:40 PM EDT Office Visit [facility] [address], [address] [place] [address] Wilton Deluca MD [address] [facility], [address] [place] [address] 05/23/2025 4:00 PM EDT Office Visit [facility] [address] [place] [address] Naga Luis MD, MS [address] [address] Marlee Meraz CCC-PULP MILL OPERATOR 8 [place] [address] 05/29/2025 1:30 PM EDT Office Visit [facility] Allergy [facility] Critical Care Medicine 10 [place] [address] Naga Luis MD, MS [address] [address] 05/30/2025 4:00 PM EDT Office Visit [facility] [address] [place] [address] Naga Luis MD, MS [address] [address] Marlee Meraz CCC-PULP MILL OPERATOR 8 [place] [address] 06/06/2025 4:00 PM EDT Office Visit [facility] [address] [place] [address] Naga Luis MD, MS [address] [address] Marlee Meraz CCC-PULP MILL OPERATOR 8 [place] [address] 06/13/2025 4:00 PM EDT Office Visit [facility] [address] [place] [address] Naga Luis MD, MS [address] [address] Marlee Meraz CCC-PULP MILL OPERATOR 8 [place] [address] 06/14/2025 10:00 AM EDT Office Visit [facility] [address] [place] [address] Bonita Sweeney MD [address] [place] [address] 06/20/2025 2:00 PM EDT Office Visit [address] [address] Naga Luis MD, MS [address] [address] Marlee Meraz CCC-PULP MILL OPERATOR 8 [place] [address] 06/27/2025 2:00 PM EDT Office Visit [address] [address] Naga Luis MD, MS [address] [address] Marlee Meraz CCC-PULP MILL OPERATOR 8 [place] [address] 07/04/2025 2:00 PM EST Office Visit [address] [place] [address] Naga Luis MD, MS [address] [address] Marlee Meraz CCC-PULP MILL OPERATOR 8 [place] [address] 07/11/2025 2:00 PM EST Office Visit [address] [address] Naga Luis MD, MS [address] [address] Marlee Meraz CCC-PULP MILL OPERATOR 8 [place] [address] 07/18/2025 2:00 PM EST Office Visit [address] [address] Naga Luis MD, MS [address] [address] Marlee Meraz CCC-PULP MILL OPERATOR [address] [place] [address] 07/26/2025 1:00 PM EST Office Visit [address] [address] Naga Luis MD, MS [address] [address] Marlee Meraz CCC-PULP MILL OPERATOR [address] [place] [address] 08/01/2025 2:00 PM EST Office Visit [address] [address] Naga Luis MD, MS [address] [address] Marlee Meraz CCC-PULP MILL OPERATOR 8 [place] [address] 08/08/2025 2:00 PM EST Office Visit [address] [address] Naga Luis MD, MS [address] [address] Marlee Meraz CCC-PULP MILL OPERATOR 8 [place] [address] 08/15/2025 2:00 PM EST Office Visit [address] [address] Naga Luis MD, MS [address] [phone] Marlee Meraz CCC-PULP MILL OPERATOR 8 [place] [address] documented as of this encounter Visit Diagnoses Not on filedocumented in this encounter Additional Health Concerns Assessment Noted Time PHQ-2 Depression Total Score: 0 06/05/20 24 4:05 PM EDT documented as of this encounter Care Teams Dentofacial Orthopedics Dentist Relationship Specialty Start Date End Date Bonita Sweeney MD [address] [place] [phone] [email or web address] PCP - General Internal Medicine 02/16/23 Scooter Gross MD [address] [place] [phone] [email or web address] Historical LMR Provider 06/13/17 Gema Mari, RN [address] [place] [phone] iCMP Housekeeper HomeSeafood Clerk 03/18/23 Jennie Brown [address] [place] [phone] [email or web address] [facility] [employer] Arc Furnace Operator 01/18/25 01/23/25 documented as of this encounter Additional Source Comments The information contained in this document represents components of the legal health record. It is not the complete legal health record.[facility]
--- NOTE | 2025-05-06 11:09 | MHC.SL.IMP ---
Date of Plan of Treatment: 04/30/25 Onset of Symptoms/Illness: 04/30/22 Date Treatment Started: 04/30/25 Admitting Diagnosis: Dysphagia Primary Speech & Language Diagnosis: R13.10 Dysphagia Reason for Today's Visit: 30494 Modified Barium Swallow Study Pre-evaluation Dietary Consistencies: Regular Pre-evaluation Liquid Consistency: Thin Pre-evaluation Medication Administration: Whole with Liquid Medical History: Modified Barium Swallow Study Fluoroscopic Evaluation of Swallowing Function CPT Code 23125 Evaluation Year: 2024 Reason for Study: ?Dysphagia w aspiration documented on 12/14/24 barium swallow at [facility]? Referring Physician: Naga Luis MD Evaluating Clinician: Glory Sparks MA, CCC-BAIL [employer] Study Number: 1 Patient Name: Theo Rodriges Status: Outpatient, Wheelchair Age: 85 Sex: Male Medical History Back pain Benign positional vertigo Chronic afib Chronic cough Colon polyp Congestive heart failure Dysphagia GERD Hearing loss History of basal cell cancer History of hyperglycemia History of meningioma Hyperlipidemia Hypertensive disorder Hypokalemia Low back pain Malignant neoplasm Monoclonal gammopathy of unknown significance Neuropathy Obesity Parkinson?s disease Paroxysmal atrial fibrillation Pleurisy Seizure disorder Sleep apnea Spinal stenosis Thoracic aortic aneurysm Current (pre-evaluation) Intake/Diet: Route: PO Diet Grade: Regular Liquid Consistencies: Thin Pre-Study Functional Oral Intake Scale (FOIS): 7- Total oral intake with no restrictions Pain: None reported at time of study SUBJECTIVE: Patient is an 85 year old male referred for a modified barium swallow study by Naga Luis MD from [facility] Pulmonary, Allergy and Critical Care office in [place]. Patient reports symptoms of reflux and expectoration of phlegm with food particles. He also reports feeling that food is ?going down slowly.? Patient denies coughing or choking with eating and drinking. He reports his symptoms started approximately 2-3 years ago. Patient does have history of chronic cough and follows with GI for management of GERD. Per notes obtained from the referring medical office, patient has history of right parietal craniotomy, cardiac surgery, and upper endoscopy 08/25/23 showing small hiatal hernia and abnormal esophageal dysmotility. Patient was referred for MBSS after 12/14/24 barium swallow revealed silent aspiration. Oral Motor Exam Facial Symmetry: Symmetrical Mouth Occlusion: Normal Oral-Facial Teeth Characteristics: Partially Missing Oral-Facial Lip Pucker Description: Normal Oral-Facial Smile (Lips) Description: Normal Oral-Facial Puff Cheeks Description: Normal Tongue Size: Normal Tongue Excursion Description: Normal Tongue Range of Movement Description: Normal Tongue Speed of Movement Description: Normal Tongue Strength of Movement (against opposing pressure): Normal Tongue Movement Characteristics: Normal/Absent Food and Liquid Trials: Oral Impairment: Lip Closure: Did not test Oral Impairment: Tongue Control During Bolus Hold: 2=Posterior escape of less than half of bolus Oral Impairment: Bolus Preparation/Mastication: 0=Timely and efficient chewing and mashing Oral Impairment: Bolus Transport/Lingual Motion: 1= Delayed initiation of tongue motion Oral Impairment: Oral Residue: 2=Residue collection on oral structures Oral Impairment:Initiation of Pharyngeal Swallow: 1=Bolus head in valleculae Pharyngeal Impairment: Soft Palate Elevation: 0=No bolus between soft palate (SP)/pharyngeal wall (PW) Pharyngeal Impairment: Laryngeal Elevation: 1=Partial thyroid cartilage/arytenoids to epiglottic petiole movement Pharyngeal Impairment: Anterior Hyoid Excursion: 1=Partial anterior movement Pharyngeal Impairment: Epiglottic Movement: 1=Partial inversion Pharyngeal Impairment: Laryngeal Vestibular Closure:: 0=Complete: no air/contrast in laryngeal vestibule Pharyngeal Impairment: Pharyngeal Stripping Wave: 0=Present: complete Pharyngeal Impairment: Pharyngeal Contraction: Did not test Pharyngeal Impairment: Pharyngoesophageal Segment Openin=Complete distension and complete duration: no obstruction of flow Pharyngeal Impairment: Tongue Base (TB) Retraction: 1=Trace column of contrast/air between TB and posterior PW Pharyngeal Impairment: Pharyngeal Residue: 1=Trace residue within or on pharyngeal structures Pharyngeal Impairment: Esophageal Clearance Upright Position: Did not test Impressions and Recommendations OBJECTIVE: Time-out: performed at 14:30 Evaluation Start: 14:00; Stop: 14:10 Patient Positioning: Seated 70-90 degrees Viewing Planes: LATERAL ONLY Contrast: MBSImP? Standardized Protocol using commercially prepared, standardized Barium viscosities, including: Varibar? THIN LIQUID (40% w/v, <15 cps) , Varibar? PUDDING (40% w/v, <9208-0957 cps) , 1/2 Shortbread Cookie (1 x1 x.25 ) MBSImP ID: [id number] MBSImP Results: Lip closure for intraoral bolus containment could not be assessed due to logistical reasons not related to physiologic impairment. Tongue control during bolus hold resulted in posterior escape of less than half of the bolus. Bolus preparation and mastication resulted in timely and efficient chewing and mashing. Bolus transport/lingual motion demonstrated delayed initiation of tongue motion. Oral residue was a collection on oral structures. Initiation of the pharyngeal swallow occurred when the bolus head was in the valleculae. Soft palate elevation resulted in no bolus between the soft palate and the pharyngeal wall. Laryngeal elevation was decreased, with partial superior movement of the thyroid cartilage/partial approximation of the arytenoids to the epiglottic petiole. Anterior hyoid excursion demonstrated partial anterior movement. Epiglottic movement resulted in partial inversion. Laryngeal vestibular closure was complete, as indicated by no air or contrast within the laryngeal vestibule at the height of the swallow. Pharyngeal stripping wave was present and complete. Pharyngeal contraction could not be determined due to logistical reasons not related to physiologic impairment. Pharyngoesophageal segment opening was completely distended for complete duration with no obstruction of bolus flow. Tongue base retraction allowed a trace column of contrast or air between the retracted tongue base and the posterior pharyngeal wall. Pharyngeal residue was a trace within or on pharyngeal structures. Esophageal clearance in the upright position could not be assessed due to logistical reasons not related to physiologic impairment. Oral Impairment Score: 6 (absence of score, component 1) Pharyngeal Impairment Score: 3 (absence of score, component 13) Esophageal Impairment Score: --- (absence of score, component 17) Laryngeal Penetration and Aspiration: Neither penetration nor aspiration was observed in today's study with Cookie, Pudding-thick, Thin. ASSESSMENT: This exam was performed by the radiologist and the speech pathologist. Patient was seated upright at 90 degrees for lateral view. He fed independently and trialed the following consistencies: -Thin liquid (via individual cup sips) -Puree (mixture applesauce w/ barium pudding) -Regular (shortbread cookie coated w/ barium pudding) Adequate lip closure with no anterior spillage from the oral cavity. There was premature posterior escape, with trace contrast spilling from the oral cavity and collecting in the valleculae prior to productive lingual movement. Mastication of harder solids was timely and efficient. Posterior lingual movement was mildly delayed. Pharyngeal swallow trigger initiated as the bolus head reached the valleculae. There was minimal residue coating the tongue, which cleared with subsequent swallows. No evidence of nasopharyngeal reflux. Partial laryngeal elevation with partial epiglottic inversion and complete laryngeal vestibular closure. No evidence of aspiration or penetration during this exam. There was trace residue in the valleculae and pyriforms which cleared on subsequent swallows. Liquid Intake Recommendation: Thin Liquid Intake Strategies: Dietary Recommendations: Regular Medication Administration: Whole with Liquid Please contact the pharmacy regarding appropriate crushable or liquid drug formulations that are available whenever modified delivery is recommended. Compensatory Strategies Recommended: Sitting Upright (90 deg), Small Bites and Sips, Alternate Liquids/Solids, Rate of Ingestion Change Recommendation for Speech Therapy: NA:Typical Evaluation Text Comment: Intake Recommendations: Route: PO Diet Grade: Regular Liquid Consistencies: Thin Post-Study Functional Oral Intake Scale (FOIS): 7- Total oral intake with no restrictions No evidence of aspiration or penetration. Good oral and pharyngeal clearance. Suggested Referrals: The patient might benefit from a referral to: Gastroenterology Indication for Referral: Hx GERD, patient c/o regurgitation of food, food ?slow to go down? Therapy Recommendations: Diet modification and speech therapy is not warranted at this time. Recommend GI consult to further investigate patient?s multiple complaints of reflux, regurgitation, and ?food feeling slow to go down.? Clinician - Supplemental, Miscellaneous Communication: It is important to note MBSS objective studies are snapshots in time and Patient function might vary with factors such as time of day or concomitant medical conditions. For this reason, the final treatment plan for this patient should rest with their medical care team. Additional recommendations should be considered with the totality of the Patient in mind. Thank for the opportunity to participate in the care of this patient. If you have any questions about the content of this report, please contact the [facility] at [facility]. Education: Education regarding findings from today's study and plans for therapy were provided to Patient only through Verbal Instruction. Understanding was expressed by the Patient only. Rubber Liner Clinician/Clinical Fellow: No Supervisory Statement: N/A Speech Language Pathologist: Glory Sparks M.A., CCC-[employer]IL [facility]
== END 2025-04-30 14:01 | disposition home or self-care (01) ==
LOC: HO.XRAY 14:00
PROVIDERS: PCP Internal Medicine; Visit Provider Internal Medicine Critical Care Medicine
DX: R13.10 Dysphagia, unspecified (principal); T17.908D Unspecified foreign body in respiratory tract, part unspecified causing other injury, subsequent encounter
CPT/HCPCS: 74230; 92611

== ENCOUNTER → 2025-04-30 14:03 | Outpatient (BNV) | payer MEDICARE, SELFPAY | PROVIDERS: PCP Internal Medicine; Visit Provider Radiology Diagnostic Radiology | DX: R13.10 Dysphagia, unspecified (principal) | CPT/HCPCS: 74230 ==